=== PATIENT | male | born 1955 | race Caucasian/White ===

== ENCOUNTER 2018-10-23 10:03 | Emergency (ER) | payer BC, SELFPAY ==
[2018-10-23] VITALS (8 sets, daily range): BP systolic 120–171; BP diastolic 77–102; PULSE 59–110; RESP 15–19; TEMP 36.9; O2SAT 94–99
--- NOTE | 2018-10-23 10:14 | DI.RAD.S_ITS ---
PROCEDURE: XR CHEST 1V INDICATIONS: chest pain TECHNIQUE: One view of the chest was acquired. COMPARISON: None. FINDINGS: Surgical changes and devices: None. Lungs and pleura: Low lung volumes with scattered subsegmental atelectasis/scarring. No pleural effusions or pneumothorax. Elevation of the right hemidiaphragm. Mediastinum: Mediastinal contours appear normal. Heart size is normal. Bones and chest wall: No suspicious bony lesions. Overlying soft tissues appear unremarkable. IMPRESSION: No acute disease Dictated by: Garry Li M.D. on 10/23/2018 at 11:05 Approved by: Garry Li M.D. on 10/23/2018 at 11:06
[2018-10-23 10:37] LABS: Add Manual Diff / Slide Review NO; Basophils Absolute Auto 100 /uL (0-100); Basophils Percent Auto 0.9 % (0-2); Eosinophils Absolute Auto 100 /uL (0-450); Eosinophils Percent Auto 0.8 % (2-4); Hematocrit 48.5 % (41-53); Hemoglobin 16.6 g/dL (13.5-17.5); Lymphocytes Absolute Auto 1800 /uL (1100-4500); Lymphocytes Percent Auto 25.4 % (25-40); Mean Corpuscular HGB Conc 34.2 % (30-36); Mean Corpuscular Hemoglobin 30.5 PG (26-34); Mean Corpuscular Volume 89.3 fL (80-100); Monocytes Absolute Auto 600 /uL (0-900); Monocytes Percent Auto 8.6 % (3-14); Neutrophils Absolute Auto 4500 /uL (1500-7000); Neutrophils Percent Auto 64.3 % (50-75); Platelet Count 156 X10^3/uL (150-400); Red Blood Cell Count 5.44 X10^6/uL (4.5-5.9); Red Cell Distribution Width 13.4 % (11.6-14.8)
[2018-10-23 10:45] LABS: PTT Partial Thromboplastin Tim 32 SECONDS (26.4-36.2)
[2018-10-23 10:47] LABS: Alanine Aminotransferase 74 IU/L (21-72); Albumin 4.4 g/dL (3.5-5.0); Albumin Globulin Ratio 1.4 (1.0-2.8); Alkaline Phosphatase 55 U/L (38-126); Aspartate Aminotransferase 39 IU/L (17-59); Bilirubin Total 0.6 mg/dL (0.2-1.3); Blood Urea Nitrogen 18 mg/dL (9-20); Calcium 9.1 mg/dL (8.4-10.2); Carbon Dioxide 30 mmol/L (22-32); Chloride 102 mmol/L (98-107); Creatine Kinase 177 U/L (55-170); Estimated Glomerular Filt Rate > 60.0 mL/min (>60); Globulin 3.1 g/dL (1.7-4.1); Glucose 105 mg/dL (80-110); HEMOLYSIS < 15 (0-50); Lipase 95 U/L (23-300); Magnesium 1.8 mg/dL (1.6-2.3); Potassium 4.1 mmol/L (3.4-5.1); Sodium 139 mmol/L (137-145); Total Protein 7.5 g/dL (6.3-8.2)
[2018-10-23 10:58] LABS: Troponin I < 0.012 ng/mL (0.01-0.034)
[2018-10-23 11:02] LABS: CKMB % Relative Index 2.4 % (1.5-5.0); Creatine Kinase MB 4.25 ng/mL (<2.37)
[2018-10-23 11:12] LABS: B Type Natriuretic Peptide 109 (<100)
--- NOTE | 2018-10-23 12:04 | ED.SOB ---
HPI - SOB/Dyspnea General Chief Complaint: Shortness of Breath/Dyspnea Stated Complaint: atrial fib Time Seen by Provider: 10/23/18 10:28 Source: patient Mode of arrival: ambulatory Limitations: no limitations History of Present Illness Patient comes to the emergency department complaining of his AFib acting up. He states that he has had palpitations on and off over the last 8 days, but no chest pain. He states he occasionally feels as though he needs to ?catch his breath, and states the atrial fibrillation makes him just feel ?weird?. Patient denies any nausea vomiting. No abdominal pain. No fevers or chills. He states he has a history of sleep apnea, but uses CPAP for this, which seems to control the symptoms. Patient states he is seen by Cardiology at the [facility] in [place], and that for now, his business management consultant has just been watching the atrial fib. Patient states he wore a Holter monitor some years ago and confirmed atrial fib. Patient states that normally, he will go anywhere from few weeks to a couple years without episodes, but has had multiple episodes of the atrial fibrillation this week. He states he has not been in AFib for more than 24 hours at a time, but is concerned that he may develop a clot. Currently, patient takes carvedilol and a baby aspirin, among other medications. He is not on any anti dysrhythmic. Related Data Home Medications Medication Instructions Recorded Confirmed aspirin 81 mg tablet,delayed 81 mg PO DAILY 04/21/18 10/23/18 release chlorthalidone 25 mg tablet 12.5 mg PO DAILY tab 04/21/18 10/23/18 doxazosin 8 mg tablet 8 mg PO DAILY 04/21/18 10/23/18 lansoprazole 15 mg capsule,delayed 15 mg PO DAILY 04/21/18 10/23/18 release lisinopril 40 mg tablet 40 mg PO DAILY 04/21/18 10/23/18 melatonin 3 mg tablet 3 mg PO BEDTIME PRN 04/21/18 10/23/18 oxybutynin chloride ER 10 mg 10 mg PO DAILY 04/21/18 10/23/18 tablet,extended release 24 hr testosterone 4 mg/24 hr 1 patch TRANSDERMAL DAILY 04/21/18 10/23/18 transdermal 24 hour patch trazodone 150 mg tablet 150 mg PO BEDTIME 04/21/18 10/23/18 Vitamin B-12 1 tab PO DAILY 10/23/18 10/23/18 alprazolam 1 mg PO DAILY PRN 10/23/18 10/23/18 carvedilol 12.5 mg PO BID 10/23/18 10/23/18 cholecalciferol (vitamin D3) 4,000 unit PO DAILY 10/23/18 10/23/18 [Vitamin D3] sildenafil 1 dose PO PRN PRN 10/23/18 10/23/18 Previous Rx's Medication Instructions Recorded carvedilol 25 mg PO BID #60 tab 10/23/18 Allergies Allergy/AdvReac Type Severity Reaction Status Date / Time hydroxyzine [From Vistaril] AdvReac hyperactivi Verified 04/21/18 15:42 ty Review of Systems Constitutional Denies chills, Denies fever(s), Denies lethargy and Denies weakness Eyes Denies change in vision, Denies eye discharge, Denies irritation and Denies loss of vision ENT Ears, Nose, Mouth, and Throat: Denies change in voice, Denies neck pain and Denies sore throat Cardiovascular Denies chest pain, Denies irregular heart rhythm, Denies lightheadedness, Reports palpitations, Denies dyspnea, Denies dyspnea on exertion and Denies orthopnea Respiratory Denies cough, Denies dyspnea, Denies dyspnea on exertion and Denies wheezing Gastrointestinal Gastrointestinal: Denies abdominal pain, Denies change in bowel habits, Denies diarrhea, Denies nausea and Denies vomiting Genitourinary Denies hematuria, Denies flank pain, Denies urinary incontinence and Denies urinary urgency Musculoskeletal Denies neck pain Integumentary/Breasts Denies pruritus, Denies erythema, Denies rash and Denies wounds Neurologic Denies confusion, Denies loss of vision and Denies weakness Psychiatric Denies anxiety, Denies confusion, Denies depression, Denies homicidal ideation and Denies suicidal ideation Endocrine Reports palpitations Hematologic/Lymphatic Denies easy bruising Allergic/Immunologic Denies wheezing [facility] Medical History HTN (hypertension) (Acute) Atrial fibrillation (Acute) Surgical History No pertinent past surgical history (Acute) Social History Smoking Status: Former smoker Social History Smoking Status: Former smoker Exam Initial Vital Signs Initial Vital Signs: Vital Signs Temperature 98.4 F 10/23/18 10:05 Pulse Rate 66 10/23/18 10:05 Respiratory Rate 18 10/23/18 10:05 Blood Pressure 171/102 H 10/23/18 10:05 Pulse Oximetry 99 10/23/18 10:05 Const General: cooperative and well developed Nutritional Appearance: well nourished Orientation: alert, awake, oriented x3 and not confused [place] Head: normocephalic and atraumatic Ears: external ears normal Nose: external nose normal and No nasal discharge Face and sinus: face symmetric and No dry mucous membranes Mouth: oral mucosae normal and moist mucous membranes Teeth and gingiva: dentition normal Eyes General: appearance normal, both eyes and all related structures Eyelids: eyelids normal Conjunctivae: conjunctivae normal Sclera: sclerae normal Pupils: PERRL EOM: EOM intact bilaterally Neck Neck: normal visual inspection, trachea midline, No lymphadenopathy, No midline deformity and No JVD Lymphatic: No lymphedema Chest Chest: normal inspection of the chest Resp Effort & Inspection: normal respiratory effort, able to speak in complete sentences, no respiratory distress and no use of accessory muscles Auscultation: clear to auscultation bilaterally, no rales, no rhonchi and no wheezes Cardio Rate: regular rate Rhythm: abnormal rhythm irregularly irregular Heart Sounds: no click, no gallops, no murmurs and no rubs Pulses: normal peripheral pulses GI Inspection: non-distended Palpation: soft, no hepatosplenomegaly, No guarding, No pulsatile mass and No tender Auscultation: normal bowel sounds Back/Spine/Pelvis Back: No CVA tenderness Cervical Spine: cervical ROM normal and No pain with cervical ROM Thoracic/Lumbar Spine: thoracic and lumbar spine normal to inspection Skin General: no rashes or lesions noted, No jaundice and No petechiae Neuro General: alert, oriented x3, gait normal and no focal motor deficits Speech: speech normal Extrem General: full ROM, no clubbing, cyanosis or edema, no pedal edema and no calf tenderness Psych Appearance: well kempt Mental Status: mental status grossly normal Attitude: cooperative Thought Content: normal and suicidality Judgment: judgment good Course Course Narrative: Patient was worked up with laboratory studies and EKG. His labs were essentially normal. His EKG did show atrial fibrillation, but with good rate control. Patient remained in AFib but with a normal rate throughout his stay in the emergency department. Patient's case was discussed with Dr. Orellana/cardiology at [facility]. He requested that patient double carvedilol to 25 mg b.i.d. instead of 12.5. They will see pt in 1-2 weeks, and call pt tomorrow with appt. Plan was discussed with the patient who was agreeable. I have given him a new prescription for the increased dose of carvedilol. He is stable at this time. We have discussed the usual indications for return. Orders Ordered: ED Orders 10/23/18 10:05 EKG-12 Lead Stat 10/23/18 10:14 XR chest 1V Stat 10/23/18 10:27 BNP [B Type Natriuretic Peptide] Stat Complete Blood Count AUTO DIFF Stat Comprehensive Metabolic Panel Stat Lipase Stat Magnesium Stat Partial Thromboplastin Time Stat Prothrombin Time INR Stat Troponin & CK Cardiac Panel Stat Vital Signs - 8 hr 10/23/18 10:05 10/23/18 10:37 10/23/18 10:55 Temperature 98.4 F Pulse Rate 66 62 71 Respiratory Rate 18 15 18 Blood Pressure 171/102 H Blood Pressure [Right Arm] 136/82 146/87 H Pulse Oximetry 99 98 98 10/23/18 11:15 10/23/18 12:00 10/23/18 12:01 Temperature Pulse Rate 66 96 H 59 L Respiratory Rate 15 18 16 Blood Pressure Blood Pressure [Right Arm] 120/77 129/79 138/77 Pulse Oximetry 94 95 98 10/23/18 12:30 Temperature Pulse Rate 110 H Respiratory Rate 19 Blood Pressure Blood Pressure [Right Arm] 156/92 H Pulse Oximetry 97 MDM - SOB/Dyspnea Medical Records Attestation: I reviewed the patient's medical records. Lab Data Attestation: I reviewed the patient's lab results. Result diagrams: 10/23/18 10:27 10/23/18 10:27 Lab Results 10/23/18 10/23/18 10/23/18 Range/Units 10:27 10:27 10:27 WBC 7.0 (4.5-11.0) X10^3/uL RBC 5.44 (4.5-5.9) X10^6/uL Hgb 16.6 (13.5-17.5) g/dL Hct 48.5 (41-53) % MCV 89.3 (80-100) fL MCH 30.5 (26-34) PG MCHC 34.2 (30-36) % RDW 13.4 (11.6-14.8) % Plt Count 156 (150-400) X10^3/uL Neut % (Auto) 64.3 (50-75) % Lymph % (Auto) 25.4 (25-40) % [place] % (Auto) 8.6 (3-14) % Eos % (Auto) 0.8 L (2-4) % Baso % (Auto) 0.9 (0-2) % Neut # (Auto) 4500 (7951-3584) /uL Lymph # (Auto) 1800 (6860-3762) /uL [place] # (Auto) 600 (0-900) /uL Eos # (Auto) 100 (0-450) /uL Baso # (Auto) 100 (0-100) /uL PT 12.0 (10.1-12.7) SECONDS INR 1.0 (0.9-1.3) APTT 32 (26.4-36.2) SECONDS Sodium 139 (137-145) mmol/L Potassium 4.1 (3.4-5.1) mmol/L Chloride 102 (98-107) mmol/L Carbon Dioxide 30 (22-32) mmol/L BUN 18 (9-20) mg/dL Creatinine 0.90 (0.66-1.25) mg/dL Estimated GFR > 60.0 (>60) mL/min BUN/Creatinine Ratio 20.0 (6-22) Glucose 105 (80-110) mg/dL Calcium 9.1 (8.4-10.2) mg/dL Magnesium 1.8 (1.6-2.3) mg/dL Total Bilirubin 0.6 (0.2-1.3) mg/dL AST 39 (17-59) IU/L ALT 74 H (21-72) IU/L Alkaline Phosphatase 55 (38-126) U/L Total Creatine Kinase 177 H (55-170) U/L CK-MB (CK-2) 4.25 H (<2.37) ng/mL CK-MB (CK-2) Rel Index 2.4 (1.5-5.0) % Troponin I < 0.012 (0.01-0.034) ng/mL B-Natriuretic Peptide 109 H (<100) Total Protein 7.5 (6.3-8.2) g/dL Albumin 4.4 (3.5-5.0) g/dL Globulin 3.1 (1.7-4.1) g/dL Albumin/Globulin Ratio 1.4 (1.0-2.8) Lipase 95 (23-300) U/L Imaging Data Chest x-ray: Radiologist's impression: [address] [address] XRay Report Signed Patient: Jed Blunt [facility]#: [id number] : 8Acct:[id number] Age/Sex: 63 / MDate of Service: 10/23/18 Loc: ED Accession Number: [id number] Procedure: XR chest 1V Ordering Provider: Dayami Medrano MD PROCEDURE: XR CHEST 1V INDICATIONS: chest pain TECHNIQUE: One view of the chest was acquired. COMPARISON: None. FINDINGS: Surgical changes and devices: None. Lungs and pleura: Low lung volumes with scattered subsegmental atelectasis/scarring. No pleural effusions or pneumothorax. Elevation of the right hemidiaphragm. Mediastinum: Mediastinal contours appear normal. Heart size is normal. Bones and chest wall: No suspicious bony lesions. Overlying soft tissues appear unremarkable. IMPRESSION: No acute disease Dictated by: Garry Li M.D. on 10/23/2018 at 11:05 Appr ECG Data Attestation: I personally reviewed and interpreted this ECG as follows: (See below) Interpretation: Twelve lead EKG performed November 03, 2018 at 10:05 a.m., as follows: Irregular ventricular rhythm with rate of 62 beats per minute. AL interval undetectable QRS duration 99 millisecond QTC interval [address] T wave changes Interpretation: Atrial fibrillation with normal rate; borderline left axis deviation; incomplete right bundle branch block; nonspecific ST T wave abnormality; no signs of acute ischemia; abnormal EKG as interpreted by ED MD. Discharge Plan Departure Patient Disposition: Home Clinical Impression: Atrial fibrillation Qualifiers: Atrial fibrillation type: paroxysmal Qualified Code(s): I48.0 - Paroxysmal atrial fibrillation Discharge Date/Time: 10/23/18 13:40 Interventions: ED Discharge Assessment Last Done: 10/23/18 13:39 Instructions: DI for Atrial Fibrillation Activity Restrictions/Additional Instructions: Your labs look quite good. Your case has been discussed with Dr. Weeks, who has suggested that you double your carvedilol to 25 mg twice a day. He says he would like to see you in the next week or so, and will have his office call you tomorrow to set up an appointment. [facility] [place]. Prescriptions: New carvedilol 25 mg tablet 25 mg PO BID Qty: 60 RF: 0 No Action oxybutynin chloride 10 mg tablet extended release 24hr 10 mg PO DAILY RF: 0 melatonin 3 mg tablet 3 mg PO BEDTIME PRN (Reason: Insomnia) RF: 0 chlorthalidone 25 mg tablet 12.5 mg PO DAILY RF: 0 aspirin 81 mg tablet,delayed release (DR/EC) 81 mg PO DAILY RF: 0 testosterone [Androderm] 4 mg/24 hr patch 24 hour 1 patch Transdermal DAILY RF: 0 doxazosin 8 mg tablet 8 mg PO DAILY RF: 0 trazodone 150 mg tablet 150 mg PO BEDTIME RF: 0 lansoprazole [Prevacid] 15 mg capsule,delayed release(DR/EC) 15 mg PO DAILY RF: 0 lisinopril 40 mg tablet 40 mg PO DAILY RF: 0 carvedilol 12.5 mg tablet 12.5 mg PO BID RF: 0 alprazolam 1 mg tablet 1 mg PO DAILY PRN (Reason: Anxiety) RF: 0 Vitamin D3 4,000 unit Capsule 4,000 unit PO DAILY RF: 0 Vitamin B-12 1 tab PO DAILY RF: 0 sildenafil 1 dose PO PRN PRN (Reason: Erectile Dysfunction) RF: 0 Referrals: Linus Huerta MD [Primary Care Provider] -
== END 2018-10-23 13:40 | disposition home or self-care (01) ==
PROVIDERS: Emergency Provider Emergency Medicine; PCP Internal Medicine
DX: I48.0 Paroxysmal atrial fibrillation (principal); Z79.82 Long term (current) use of aspirin
CPT/HCPCS: 36591; 71045; 80053; 82550; 82553; 83690; 83735; 83880; 84484; 85025; 85610; 85730; 93005; 99283; 99285

== ENCOUNTER → 2020-08-12 11:10 | Outpatient (CLI) | payer BC, SELFPAY ==
--- NOTE | 2020-08-12 | DI.US.S_ITS ---
PROCEDURE: US PERIPH VENOUS LOW EXTREM BI INDICATIONS: EMBOLISM AND THROMBOISIS OF LEFT FEMORAL VEIN TECHNIQUE: Real-time imaging, as well as color and pulse Doppler interrogation, were performed of the deep veins of both legs from the inguinal ligament to the popliteal fossa. COMPARISON: None. FINDINGS: Right: The common femoral, femoral and popliteal veins are normally compressible, and free of intraluminal thrombus. Color and pulse Doppler demonstrate normal phasic intravascular flow. There is normal augmentation response to distal compression maneuver. Left: The common femoral, femoral and popliteal veins are normally compressible, and free of intraluminal thrombus. Color and pulse Doppler demonstrate normal phasic intravascular flow. There is normal augmentation response to distal compression maneuver. IMPRESSION: No DVT found. Dictated by: Tyree Walker M.D. on 08/12/2020 at 12:36 Approved by: Tyree Walker M.D. on 08/12/2020 at 12:36
== END ==
PROVIDERS: PCP Internal Medicine; Referring Provider Internal Medicine Cardiovascular Disease; Visit Provider Internal Medicine Cardiovascular Disease
DX: I82.512 Chronic embolism and thrombosis of left femoral vein (principal)
CPT/HCPCS: 93970

== ENCOUNTER → 2022-11-11 09:31 | Outpatient (CLI) | payer MEDICARE, BC, SELFPAY ==
--- NOTE | 2022-11-11 09:34 | DI.RAD.S_ITS ---
PROCEDURE: XR HUMERUS RT 2V INDICATIONS: eval Right upper arm and shoulder pain TECHNIQUE: 2 views of the humerus were acquired. COMPARISON: [facility], CR, XR SHOULDER RT MIN 2V, 11/11/2022, 9:36. FINDINGS: Bones: No fractures or dislocations. No suspicious bony lesions. Soft tissues: Suspect rotator cuff calcific tendinitis. IMPRESSION: 1. No acute osseous abnormality. 2. Suspect rotator cuff calcific tendinitis. Dictated by: Mat Gaines M.D. on 11/11/2022 at 15:05 Approved by: Mat Gaines M.D. on 11/11/2022 at 15:05
--- NOTE | 2022-11-11 09:34 | DI.RAD.S_ITS ---
PROCEDURE: XR SHOULDER RT MIN 2V INDICATIONS: eval Right upper arm and shoulder pain TECHNIQUE: 3 views of the shoulder were acquired. COMPARISON: None. FINDINGS: Bones: No fractures or dislocations. No suspicious bony lesions. Moderate acromioclavicular and mild glenohumeral joint degeneration. Visualized ribs appear intact. Soft tissues: Calcific densities over the humeral head suggesting rotator cuff calcific tendinitis. IMPRESSION: 1. Moderate osteoarthritic changes. 2. Suspect rotator cuff calcific tendinitis. Dictated by: Mat Gaines M.D. on 11/11/2022 at 15:03 Approved by: Mat Gaines M.D. on 11/11/2022 at 15:04
[2022-11-11 11:34] LABS: Alanine Aminotransferase 40 IU/L (<50); Albumin 4.2 g/dL (3.5-5.0); Albumin Globulin Ratio 1.6 (1.0-2.8); Alkaline Phosphatase 55 U/L (38-126); Aspartate Aminotransferase 29 IU/L (17-59); BUN Creatinine Ratio 14.3 (6-22); Bilirubin Total 0.7 mg/dL (0.2-1.3); Blood Urea Nitrogen 12 mg/dL (9-20); Carbon Dioxide 33 mmol/L (22-32); Chloride 99 mmol/L (98-107); Cholesterol 138 mg/dL (140-199); Estimated Glomerular Filt Rate > 60 mL/min (>60); Globulin 2.6 g/dL (1.7-4.1); Glucose 101 mg/dL (80-110); HDL Cholesterol 30 mg/dL (40-60); HEMOLYSIS < 15 (0-50); LDL Cholesterol Calculated 88 mg/dL (<100); Potassium 4.7 mmol/L (3.4-5.1); Sodium 138 mmol/L (137-145); Total Protein 6.8 g/dL (6.3-8.2); Triglycerides 102 mg/dL (35-150)
[2022-11-11 11:38] LABS: Add Manual Diff / Slide Review NO; Basophils Absolute Auto 100 /uL (0-100); Basophils Percent Auto 0.9 % (0-2); Eosinophils Absolute Auto 200 /uL (0-450); Eosinophils Percent Auto 2.6 % (2-4); Hematocrit 45.7 % (41-53); Hemoglobin 16.2 g/dL (13.5-17.5); Lymphocytes Absolute Auto 1400 /uL (1100-4500); Mean Corpuscular HGB Conc 35.3 % (30-36); Mean Corpuscular Hemoglobin 31.3 PG (26-34); Mean Corpuscular Volume 88.6 fL (80-100); Monocytes Absolute Auto 500 /uL (0-900); Neutrophils Absolute Auto 3800 /uL (1500-7000); Neutrophils Percent Auto 63.5 % (50-75); Platelet Count 169 X10^3/uL (150-400); Red Blood Cell Count 5.16 X10^6/uL (4.5-5.9); Red Cell Distribution Width 13.3 % (11.6-14.8); White Blood Cell Count 5.9 X10^3/uL (4.5-11.0)
[2022-11-11 11:55] LABS: Prostate Specific Antigen 0.449 ng/mL (0.10-4.00); TSH w/ Reflex to FT4 1.42 uIU/mL (0.47-4.68)
[2022-11-12 09:17] LABS: x Labcorp Estim. Avg Glu (eAG) 103 mg/dL (.); x Labcorp Hemoglobin A1c 5.2 % (4.8-5.6)
[2022-11-17 08:43] LABS: Percent Free Testosterone 2.91 % (1.50-4.20); Testosterone Free 11.62 ng/dL (5.00-21.00); Testosterone Total 399.3 ng/dL (264.0-916.0)
== END ==
PROVIDERS: PCP Registered Nurse Diabetes Educator; Referring Provider Registered Nurse Diabetes Educator; Visit Provider Registered Nurse Diabetes Educator
DX: M25.511 Pain in right shoulder (principal); M79.601 Pain in right arm; I10 Essential (primary) hypertension; R39.9 Unspecified symptoms and signs involving the genitourinary system; R79.89 Other specified abnormal findings of blood chemistry; R73.01 Impaired fasting glucose
CPT/HCPCS: 73030; 73060; 80053; 80061; 83036; 84153; 84402; 84403; 84443; 85025

== ENCOUNTER → 2022-11-17 15:01 | Outpatient (CLI) | payer MEDICARE, BC, SELFPAY | PROVIDERS: PCP Registered Nurse Diabetes Educator; Referring Provider Urology; Visit Provider Urology | DX: R97.20 Elevated prostate specific antigen [PSA] (principal) | CPT/HCPCS: 36415; 84153; 84154 ==

== ENCOUNTER → 2022-12-31 10:30 | Outpatient (CLI) | payer MEDICARE, BC, SELFPAY ==
[2022-12-31 14:15] LABS: Urine N gonorrhoeae NOT DETECTED
[2022-12-31 14:18] LABS: Urine Chlamydia NOT DETECTED
[2023-01-01 15:14] LABS: HSV1IGG < 0.91 index (0.00-0.90)
[2023-01-02 04:39] LABS: RPR Screen Non Reactive (Non Reactive)
[2023-01-03 16:25] LABS: Hepatitis B Surface Antigen NEGATIVE s/c (NEGATIVE)
[2023-01-03 17:23] LABS: HIV 1 & 2 Ab/Ag 4th Gen Combo NEGATIVE (NEGATIVE); Hep C Virus Ab w/Reflex Quant NEGATIVE s/c (NEGATIVE)
== END ==
LOC: RAD 10:31 → LAB 01-04 11:12
PROVIDERS: PCP Registered Nurse Diabetes Educator; Referring Provider Registered Nurse Diabetes Educator; Visit Provider Registered Nurse Diabetes Educator
DX: Z72.51 High risk heterosexual behavior (principal)
CPT/HCPCS: 36415; 86592; 86695; 86696; 86803; 87340; 87389; 87491; 87591

== ENCOUNTER → 2023-01-03 12:51 | Outpatient (CLI) | payer MEDICARE, BC, SELFPAY | PROVIDERS: PCP Registered Nurse Diabetes Educator; Visit Provider Registered Nurse Diabetes Educator | DX: L73.9 Follicular disorder, unspecified (principal) | CPT/HCPCS: 87070; 87075; 87205 ==

== ENCOUNTER → 2023-02-11 11:09 | Outpatient (CLI) | payer MEDICARE, BC, SELFPAY ==
--- NOTE | 2023-02-11 11:10 | DI.RAD.S_ITS ---
PROCEDURE: XR LUMBAR SPINE 2-3V INDICATIONS: eval chronic LBP TECHNIQUE: 3 views of the lumbar spine were acquired. COMPARISON: None. FINDINGS: Bones: 5 [id number] vertebrae are present. There is normal bony alignment. No acute vertebral body compression fractures. No suspicious bony lesions. Moderate multilevel lumbar spondylosis with degenerative endplate changes, disc space loss, and endplate osteophyte formation. Soft tissues: Overlying bowel gas pattern is normal. No suspicious soft tissue calcifications. IMPRESSION: Lumbar spine without acute fracture. Moderate multilevel lumbar spondylosis. Findings are most severe at L4-5 and L5-S1. Dictated by: Cristóbal Harding M.D. on 02/11/2023 at 12:28 Approved by: Cristóbal Harding M.D. on 02/11/2023 at 12:29
== END ==
PROVIDERS: PCP Registered Nurse Diabetes Educator; Referring Provider Registered Nurse Diabetes Educator; Visit Provider Registered Nurse Diabetes Educator
DX: M54.59 Other low back pain (principal); M47.816 Spondylosis without myelopathy or radiculopathy, lumbar region; M47.817 Spondylosis without myelopathy or radiculopathy, lumbosacral region
CPT/HCPCS: 72100

== ENCOUNTER → 2023-03-24 14:24 | Outpatient (CLI) | payer MEDICARE, BC, SELFPAY ==
--- NOTE | 2023-03-24 14:26 | DI.RAD.S_ITS ---
PROCEDURE: XR CERVICAL SPINE 2V OR 3V INDICATIONS: Right shoulder pain/numbness - neck pain TECHNIQUE: 3 view(s) of the cervical spine were acquired. COMPARISON: None. FINDINGS: Bones: No fractures or dislocations to the T1 level. The lateral masses of C1 appear intact on the odontoid view. No suspicious bony lesions. Mild disc height loss at C3-4. Mild facet arthrosis, most prominent at the left side of C5-6. Soft tissues: No prevertebral soft tissue swelling. IMPRESSION: Minimal degenerative disc disease and facet arthrosis. Dictated by: Mark Burch M.D. on 03/24/2023 at 17:09 Approved by: Mark Burch M.D. on 03/24/2023 at 17:09
== END ==
PROVIDERS: PCP Registered Nurse Diabetes Educator; Referring Provider Physician Assistant; Visit Provider Physician Assistant
DX: M25.511 Pain in right shoulder (principal); R20.0 Anesthesia of skin; R20.2 Paresthesia of skin; M50.30 Other cervical disc degeneration, unspecified cervical region; M47.812 Spondylosis without myelopathy or radiculopathy, cervical region; M25.50 Pain in unspecified joint
CPT/HCPCS: 72040; 85651; 86140

== ENCOUNTER → 2023-03-24 14:38 | Outpatient (CLI) | payer MEDICARE, BC, SELFPAY ==
[2023-03-24 15:58] LABS: C-Reactive Protein Quant < 0.5 mg/dL (<1.0)
[2023-03-24 17:45] LABS: Erythrocyte Sedimentation Rate 3 MM/HR (0-15)
== END ==
PROVIDERS: PCP Registered Nurse Diabetes Educator; Referring Provider Physician Assistant; Visit Provider Physician Assistant
DX: M25.50 Pain in unspecified joint (principal)
CPT/HCPCS: 85651; 86140

== ENCOUNTER 2023-05-23 14:30 | Outpatient (RCR) | payer MEDICARE, BC, SELFPAY ==
--- NOTE | 2023-03-21 16:37 | PT.OIE ---
Current Diagnoses Stiffness of other specified joint, not elsewhere classified (03/21/23) Other low back pain (03/21/23) Past Medical History (Last Updated 02/14/23 @ 19:11 by SHELLY Colindres) Atrial fibrillation Dyslipidemia HSV-2 (herpes simplex virus 2) infection HTN (hypertension) Impaired fasting blood sugar Low testosterone Lumbar spondylosis Other low back pain Past Surgical History (Last Reviewed 02/14/23 @ 19:06 by SHELLY Colindres) No pertinent past surgical history Visit Care Team Role Provider Type Other Providers Specialty: Address: Phone: Fax: Email: Doctor Ziyad MD Family Provider Non-Staff Specialty: Medical Address: Phone: Fax: Email: SHELLY Colindres Attending Provider [employer] Primary Care Provider Referring Provider Specialty: Medical Address: [address] [place] [address], [facility] Email: [email or web address] Physical Therapy Initial Evaluation PT-OP-A Visit Information Start: 03/21/23 14:21 Freq: Status: Active Protocol: Document 03/21/23 12:00 DCW (Rec: 03/21/23 14:25 [facility] [id number]) Out-Patient Physical Therapy Visit Information Visit Information Visit Type Initial Evaluation Visit Start Time 12:00 Visit Stop Time 12:45 Total Visit Minutes 45 Visit Number 1 Number of COORDINATOR OF GENETIC SERVICES Visits 0 Evaluation Information Evaluation Date 03/21/23 PT-OP-B Current Condition Start: 03/21/23 14:21 Freq: Status: Active Protocol: Document 03/21/23 12:00 DCW (Rec: 03/21/23 16:21 DC [id number]) Current Condition History of Current Condition Onset Date Multi-month history Current Complaints Worsening low back pain and stiffness History of Current Condition Pt is a 67 year old male presenting with a multi-month history of low back pain. Reports it has been worsening, but there was no initial injury. Worse in the morning and loosens up as the day progresses. Pain wakes him up every night. Pt reports pain varies in intensity and location. Reports sometimes it is arthritic pain right in my spine, and sometimes it feels more like the muscles across my entire low back. Pain in the muscles can be on the left or the right, but is typically only on one side at a time. goes for daily walks, typically has to stop after ~ 45 minutes due to back pain. Notes no radicular pain into his legs. PT-OP-C Subjective Start: 03/21/23 14:21 Freq: Status: Active Protocol: Document 03/21/23 12:00 DCW (Rec: 03/21/23 14:25 DCW [id number]) OP-PT Subjective Patient Comments Patient Comments It just keeps getting worse. Patient Reported Progress Improving Patient Questionnaires Oswestry Low Back Index Oswestry Score 50 = 18% PT-OP-F Manual Assessment Start: 03/21/23 14:21 Freq: Status: Active Protocol: Document 03/21/23 12:00 DCW (Rec: 03/21/23 16:21 DCW [id number]) Manual Assessments Joint Mobility Assessment Joint Mobility Assessment Severe hypomobility in spine with attempted vertebral mobilization, almost no P->A movement in thoracic and lumbar spine. PT-OP-J Posture/Palpation/Skin Start: 03/21/23 14:21 Freq: Status: Active Protocol: Document 03/21/23 12:00 DCW (Rec: 03/21/23 16:21 DCW [id number]) Posture Evaluation Position Standing Evaluation View Lateral T-Spine Posture Increased Kyphosis L-Spine Posture Flattened PT-OP-K Range of Motion Start: 03/21/23 14:21 Freq: Status: Active Protocol: Document 03/21/23 12:00 DCW (Rec: 03/21/23 16:21 DCW [id number]) Lumbar Spine Range of Motion Lumbar Spine Active Degrees Testing Position Standing Flexion 20 Extension 20 Lateral Flexion Left 61 Lateral Flexion Right 59 ROM Limitations Bony Restriction Comments Lateral flexion measured in cm from fingertips to floor PT-OP-L Special Tests Start: 03/21/23 14:21 Freq: Status: Active Protocol: Document 03/21/23 12:00 DCW (Rec: 03/21/23 16:21 DCW [id number]) Special Tests Lumbar Spine Special Tests Vertical Spine Loading Test Results Negative Straight Leg Raise Test Results Bilateral Hamstring tightness 50? Slump Test Results Negative Compression Test Results Positive - increased c/o pain A-P Shearing Test Results Negative Hip Special Tests LAURITA Test Results Negative Piriformis Test Results Negative PT-OP-M Strength Start: 03/21/23 14:21 Freq: Status: Active Protocol: Document 03/21/23 12:00 DCW (Rec: 03/21/23 16:21 DCW [id number]) Trunk Strength Trunk Manual Muscle Testing Core Stabilization Good contraction with verbal cues, difficulty with contraction during active mobility: 4/5 PT-OP-Q Treatments Start: 03/21/23 14:21 Freq: Status: Active Protocol: Document 03/21/23 12:00 DCW (Rec: 03/21/23 14:25 DCW [id number]) Therapeutic Exercises Supine Exercises LTR Supine Exercise Name LTR Sidelying Exercises Open Book Sidelying Exercise Name Open Book Standing Exercises Pallof Press Standing Exercise Name Pallof Press Resistance Lv 3 Equipment Used T-band PT-OP-T Assessment and Plan Start: 03/21/23 14:21 Freq: Status: Active Protocol: Document 03/21/23 12:00 DCW (Rec: 03/21/23 16:37 DCW [id number]) Physical Therapy Assessment Rehab Potential Rehabilitation Potential Fair Evaluation Complexity Number of Personal Factors/Comorbidities 1-2 Number of Body Systems Impaired 3 Clinical Presentation at Evaluation Evolving Impairments Impairments Activity Tolerance,Functional Activities,Functional Mobility ,Gait,Pain,Posture,ROM, Strength,Tone Goals Three Impairment Pt lumbar flexion limited to 20? Retort Setter Goal (LTG) Pt to demonstrate improved lumbar flexion in standing by at least 20? to a total of 40? or more to improve ability to reach down to pick objects off the floor without increasing back pain. LTG Duration 05/21/23 Two Impairment Back pain wakes pt up every night Retort Setter Goal (LTG) Pt to report sleeping through the night without waking up due to back pain for at least 4 nights a week. LTG Duration 05/21/23 One Impairment Pt does not have an appropriate home exercise program Short Term Goal (STG) Pt to be independent and compliant with an appropriate HEP STG Duration 04/20/23 Assessment Summary Assessment Pt presents with signs and symptoms consistent with referring diagnosis of lumbar DJD/DDD, resulting in low back pain and severely restricted lumbar mobility. Pt demonstrates poor lumbar and thoracic mobility/ROM, as well as mild core weakness and difficulty maintaining abdominal bracing with activity. Pt should benefit from skilled therapy focusing on STM and joint mobilizations to improve lumbar mobility, core strengthening, hamstring flexibility, and body mechanics. Due to severe nature of hypomobility of lumbar spine, pt may benefit from follow-up testing to rule in/rule out potential causes of inflammatory process throughout spine Physical Therapy Plan Frequency and Duration Frequency of Treatment 2x/Week Plan of Care Start Date 03/21/23 Plan of Care End Date 05/21/23 Therapeutic Interventions Therapeutic Interventions Home Exercise Program,Joint Mobilizations,Manual Therapy, Neuromuscular Re-education, Patient/Caregiver Education, Self-Care/Home Management,Soft Tissue Mobilization, Therapeutic Activities, Therapeutic Exercises Next Visit Focus/Plan Next Note Type Treatment Note Next Visit Plan Core strengthening, joint mobilizations, STM, ROM/ flexibility
--- NOTE | 2023-03-21 16:37 | PT.OPPOC ---
Physical, Occupational & Speech Therapy At [facility] Current Diagnoses Stiffness of other specified joint, not elsewhere classified (03/21/23) Other low back pain (03/21/23) Visit Care Team Role Provider Type Other Providers Specialty: Address: Phone: Fax: Email: Doctor Ziyad MD Family Provider Non-Staff Specialty: Medical Address: Phone: Fax: Email: SHELLY Colindres Attending Provider Advanced Program Project Analyst Primary Care Provider Referring Provider Specialty: Medical Address: [address] [place] [address] Email: [email or web address] Plan Of Care PT-OP-T Assessment and Plan Start: 03/21/23 14:21 Freq: Status: Active Protocol: Document 03/21/23 12:00 DCW (Rec: 03/21/23 16:37 DCW [id number]) Physical Therapy Assessment Rehab Potential Rehabilitation Potential Fair Evaluation Complexity Number of Personal Factors/Comorbidities 1-2 Number of Body Systems Impaired 3 Clinical Presentation at Evaluation Evolving Impairments Impairments Activity Tolerance,Functional Activities,Functional Mobility ,Gait,Pain,Posture,ROM, Strength,Tone Goals Three Impairment Pt lumbar flexion limited to 20? Long-Term Goal (LTG) Pt to demonstrate improved lumbar flexion in standing by at least 20? to a total of 40? or more to improve ability to reach down to pick objects off the floor without increasing back pain. LTG Duration 05/21/23 Two Impairment Back pain wakes pt up every night Long-Term Goal (LTG) Pt to report sleeping through the night without waking up due to back pain for at least 4 nights a week. LTG Duration 05/21/23 One Impairment Pt does not have an appropriate home exercise program Short Term Goal (STG) Pt to be independent and compliant with an appropriate HEP STG Duration 04/20/23 Assessment Summary Assessment Pt presents with signs and symptoms consistent with referring diagnosis of lumbar DJD/DDD, resulting in low back pain and severely restricted lumbar mobility. Pt demonstrates poor lumbar and thoracic mobility/ROM, as well as mild core weakness and difficulty maintaining abdominal bracing with activity. Pt should benefit from skilled therapy focusing on STM and joint mobilizations to improve lumbar mobility, core strengthening, hamstring flexibility, and body mechanics. Due to severe nature of hypomobility of lumbar spine, pt may benefit from follow-up testing to rule in/rule out potential causes of inflammatory process throughout spine Physical Therapy Plan Frequency and Duration Frequency of Treatment 2x/Week Plan of Care Start Date 03/21/23 Plan of Care End Date 05/21/23 Therapeutic Interventions Therapeutic Interventions Home Exercise Program,Joint Mobilizations,Manual Therapy, Neuromuscular Re-education, Patient/Caregiver Education, Self-Care/Home Management,Soft Tissue Mobilization, Therapeutic Activities, Therapeutic Exercises Next Visit Focus/Plan Next Note Type Treatment Note Next Visit Plan Core strengthening, joint mobilizations, STM, ROM/ flexibility Plan of Care Dates Plan of Care Start Date 03/21/23 Plan of Care End Date 05/21/23 Electronically Signed by: Maxx Aldana, PT 03/21/23 5140 If you are in agreement with this Plan of Care, please return a signed and dated copy. I have reviewed this Plan of Care and certify that the skilled therapy services above are required to meet the patient?s needs. Physician Signature Date Printed Name and Credentials Clinical Instructor Signature Printed Name and Credentials
--- NOTE | 2023-03-23 12:45 | PT.OTN ---
Current Diagnoses Stiffness of other specified joint, not elsewhere classified (03/23/23) Other low back pain (03/23/23) Physical Therapy Treatment Note PT-OP-A Visit Information Start: 03/21/23 14:21 Freq: Status: Active Protocol: Document 03/23/23 12:00 DCW (Rec: 03/23/23 12:45 DCW [id number]) Out-Patient Physical Therapy Visit Information Visit Information Visit Type Treatment Note Visit Start Time 12:00 Visit Stop Time 12:45 Total Visit Minutes 45 Visit Number 2 Number of CROOK OPERATOR Visits 0 Evaluation Information Evaluation Date 03/21/23 PT-OP-B Current Condition Start: 03/21/23 14:21 Freq: Status: Active Protocol: Document 03/21/23 12:00 DCW (Rec: 03/21/23 16:21 DCW [id number]) Current Condition History of Current Condition Onset Date Multi-month history Current Complaints Worsening low back pain and stiffness History of Current Condition Pt is a 67 year old male presenting with a multi-month history of low back pain. Reports it has been worsening, but there was no initial injury. Worse in the morning and loosens up as the day progresses. Pain wakes him up every night. Pt reports pain varies in intensity and location. Reports sometimes it is arthritic pain right in my spine, and sometimes it feels more like the muscles across my entire low back. Pain in the muscles can be on the left or the right, but is typically only on one side at a time. goes for daily walks, typically has to stop after ~ 45 minutes due to back pain. Notes no radicular pain into his legs. PT-OP-C Subjective Start: 03/21/23 14:21 Freq: Status: Active Protocol: Document 03/23/23 12:00 DCW (Rec: 03/23/23 12:45 DCW [id number]) OP-PT Subjective Patient Comments Patient Comments I slept really good, so it's feeling pretty good today. PT-OP-F Manual Assessment Start: 03/21/23 14:21 Freq: Status: Active Protocol: Document 03/21/23 12:00 DCW (Rec: 03/21/23 16:21 DCW [id number]) Manual Assessments Joint Mobility Assessment Joint Mobility Assessment Severe hypomobility in spine with attempted vertebral mobilization, almost no P->A movement in thoracic and lumbar spine. PT-OP-J Posture/Palpation/Skin Start: 03/21/23 14:21 Freq: Status: Active Protocol: Document 03/21/23 12:00 DCW (Rec: 03/21/23 16:21 DCW [id number]) Posture Evaluation Position Standing Evaluation View Lateral T-Spine Posture Increased Kyphosis L-Spine Posture Flattened PT-OP-K Range of Motion Start: 03/21/23 14:21 Freq: Status: Active Protocol: Document 03/21/23 12:00 DCW (Rec: 03/21/23 16:21 DCW [id number]) Lumbar Spine Range of Motion Lumbar Spine Active Degrees Testing Position Standing Flexion 20 Extension 20 Lateral Flexion Left 61 Lateral Flexion Right 59 ROM Limitations Bony Restriction Comments Lateral flexion measured in cm from fingertips to floor PT-OP-L Special Tests Start: 03/21/23 14:21 Freq: Status: Active Protocol: Document 03/21/23 12:00 DCW (Rec: 03/21/23 16:21 DCW [id number]) Special Tests Lumbar Spine Special Tests Vertical Spine Loading Test Results Negative Straight Leg Raise Test Results Bilateral Hamstring tightness 50? Slump Test Results Negative Compression Test Results Positive - increased c/o pain A-P Shearing Test Results Negative Hip Special Tests LAURITA Test Results Negative Piriformis Test Results Negative PT-OP-M Strength Start: 03/21/23 14:21 Freq: Status: Active Protocol: Document 03/21/23 12:00 DCW (Rec: 03/21/23 16:21 DCW [id number]) Trunk Strength Trunk Manual Muscle Testing Core Stabilization Good contraction with verbal cues, difficulty with contraction during active mobility: 4/5 PT-OP-Q Treatments Start: 03/21/23 14:21 Freq: Status: Active Protocol: Document 03/23/23 12:00 DCW (Rec: 03/23/23 12:45 DCW [id number]) Gym Equipment Therapeutic Ball Trunk Rotation Exercise Details Resisted Trunk Rotation Ball Size/Color Green - 65 cm Double Mccreary T-band Body Position Sitting Pelvic Tilts Exercise Details Pelvic tilts/circles Ball Size/Color Green - 65 cm Body Position Sitting Comments Mirror to limit upper body movement Bridging Exercise Details Bridging /c feet on ball Ball Size/Color Red - 55 cm Body Position Supine LTR Exercise Details LTR Ball Size/Color Red - 55 cm Body Position Supine Therapeutic Exercises Standing Exercises Pec Stretch Standing Exercise Name Corner Pec Stretch Side bilateral Manual Therapy Treatment Soft Tissue Mobilization Lumbar Body Location Lumbar paraspinals Mobilization Type Strumming,Sustained Pressure Intensity/Depth Moderate Body Position Sidelying PT-OP-T Assessment and Plan Start: 03/21/23 14:21 Freq: Status: Active Protocol: Document 03/23/23 12:00 DCW (Rec: 03/23/23 12:45 DCW [id number]) Physical Therapy Assessment Impairments Impairments Activity Tolerance,Functional Activities,Functional Mobility ,Gait,Pain,Posture,ROM, Strength,Tone Goals Three Impairment Pt lumbar flexion limited to 20? Custodial Goal (LTG) Pt to demonstrate improved lumbar flexion in standing by at least 20? to a total of 40? or more to improve ability to reach down to pick objects off the floor without increasing back pain. LTG Duration 05/21/23 Two Impairment Back pain wakes pt up every night Custodial Goal (LTG) Pt to report sleeping through the night without waking up due to back pain for at least 4 nights a week. LTG Duration 05/21/23 One Impairment Pt does not have an appropriate home exercise program Short Term Goal (STG) Pt to be independent and compliant with an appropriate HEP STG Duration 04/20/23 Assessment Summary Assessment Good response to treatment today, pt mentioned interest in purchasing T-ball for HEP. Has follow-up with PCP next week to discuss hypomobility in spine. Physical Therapy Plan Frequency and Duration Frequency of Treatment 2x/Week Plan of Care Start Date 03/21/23 Plan of Care End Date 05/21/23 Therapeutic Interventions Therapeutic Interventions Home Exercise Program,Joint Mobilizations,Manual Therapy, Neuromuscular Re-education, Patient/Caregiver Education, Self-Care/Home Management,Soft Tissue Mobilization, Therapeutic Activities, Therapeutic Exercises Next Visit Focus/Plan Next Note Type Treatment Note Next Visit Plan Core strengthening, joint mobilizations, STM, ROM/ flexibility
--- NOTE | 2023-03-28 13:08 | PT.OTN ---
Current Diagnoses Stiffness of other specified joint, not elsewhere classified (03/28/23) Other low back pain (03/28/23) Physical Therapy Treatment Note PT-OP-A Visit Information Start: 03/21/23 14:21 Freq: Status: Active Protocol: Document 03/28/23 12:18 SP (Rec: 03/28/23 13:30 SP [id number]) Out-Patient Physical Therapy Visit Information Visit Information Visit Type Treatment Note Visit Start Time 12:18 Visit Stop Time 13:08 Total Visit Minutes 50 Visit Number 3 Number of CHIMNEY BUILDER Visits 1 Evaluation Information Evaluation Date 03/21/23 Precautions Precautions 03/28/23: pt reports [place], has hearing aids. PT-OP-B Current Condition Start: 03/21/23 14:21 Freq: Status: Active Protocol: Document 03/21/23 12:00 DCW (Rec: 03/21/23 16:21 DCW [id number]) Current Condition History of Current Condition Onset Date Multi-month history Current Complaints Worsening low back pain and stiffness History of Current Condition Pt is a 67 year old male presenting with a multi-month history of low back pain. Reports it has been worsening, but there was no initial injury. Worse in the morning and loosens up as the day progresses. Pain wakes him up every night. Pt reports pain varies in intensity and location. Reports sometimes it is arthritic pain right in my spine, and sometimes it feels more like the muscles across my entire low back. Pain in the muscles can be on the left or the right, but is typically only on one side at a time. goes for daily walks, typically has to stop after ~ 45 minutes due to back pain. Notes no radicular pain into his legs. PT-OP-C Subjective Start: 03/21/23 14:21 Freq: Status: Active Protocol: Document 03/28/23 12:18 SP (Rec: 03/28/23 13:30 SP [id number]) OP-PT Subjective Patient Comments Patient Comments Pt reports wants review HEP doing correctly. PT-OP-F Manual Assessment Start: 03/21/23 14:21 Freq: Status: Active Protocol: Document 03/21/23 12:00 DCW (Rec: 03/21/23 16:21 DCW [id number]) Manual Assessments Joint Mobility Assessment Joint Mobility Assessment Severe hypomobility in spine with attempted vertebral mobilization, almost no P->A movement in thoracic and lumbar spine. PT-OP-J Posture/Palpation/Skin Start: 03/21/23 14:21 Freq: Status: Active Protocol: Document 03/21/23 12:00 DCW (Rec: 03/21/23 16:21 DCW [id number]) Posture Evaluation Position Standing Evaluation View Lateral T-Spine Posture Increased Kyphosis L-Spine Posture Flattened PT-OP-K Range of Motion Start: 03/21/23 14:21 Freq: Status: Active Protocol: Document 03/21/23 12:00 DCW (Rec: 03/21/23 16:21 DCW [id number]) Lumbar Spine Range of Motion Lumbar Spine Active Degrees Testing Position Standing Flexion 20 Extension 20 Lateral Flexion Left 61 Lateral Flexion Right 59 ROM Limitations Bony Restriction Comments Lateral flexion measured in cm from fingertips to floor PT-OP-L Special Tests Start: 03/21/23 14:21 Freq: Status: Active Protocol: Document 03/21/23 12:00 DCW (Rec: 03/21/23 16:21 DCW [id number]) Special Tests Lumbar Spine Special Tests Vertical Spine Loading Test Results Negative Straight Leg Raise Test Results Bilateral Hamstring tightness 50? Slump Test Results Negative Compression Test Results Positive - increased c/o pain A-P Shearing Test Results Negative Hip Special Tests LAURITA Test Results Negative Piriformis Test Results Negative PT-OP-M Strength Start: 03/21/23 14:21 Freq: Status: Active Protocol: Document 03/21/23 12:00 DCW (Rec: 03/21/23 16:21 DCW [id number]) Trunk Strength Trunk Manual Muscle Testing Core Stabilization Good contraction with verbal cues, difficulty with contraction during active mobility: 4/5 PT-OP-Q Treatments Start: 03/21/23 14:21 Freq: Status: Active Protocol: Document 03/28/23 12:18 SP (Rec: 03/28/23 13:30 SP [id number]) Gym Equipment Therapeutic Ball Trunk Rotation Exercise Details Resisted Trunk Rotation Ball Size/Color Green - 65 cm green T-band Body Position Sitting Reps/Duration 2x15 Comments held front, cues trunk rotation /c elongated posture and follow upperbody with arms Pelvic Tilts Exercise Details Pelvic tilts/circles: fwd/bwd/ lateral Ball Size/Color Green - 65 cm Body Position Sitting Reps/Duration x15 Comments Mirror to limit upper body movement, rock oversit bones Bridging Exercise Details Bridging /c feet on ball Ball Size/Color Red - 55 cm felt better than 65cm on LS Body Position Supine Reps/Duration 5 reps each side Comments discomfort over LS larg Tball LTR Exercise Details LTR Ball Size/Color Red - 55 cm, felt better than 65cm on LS Body Position Supine Reps/Duration x10 Comments discomfort over LS larg Tball Therapeutic Exercises Supine Exercises stretching Supine Exercise Name 1. SKTC 2. piriformis 3. FIg 4 Side bilateral Reps/Minutes 30 x2 each Comments cued breath allow lengthening in LB, LTR Supine Exercise Name LTR Reps/Minutes 2x10 Sidelying Exercises Open Book Sidelying Exercise Name Open Book Reps/Minutes discussed but not performed, feels good Sitting Exercises sit stands Sitting Exercise Name discussed lumbar flexion sit/ stand hover chair to sit Comments not performed, good understanding lumbar ROM lumbar flexion Sitting Exercise Name LS ROM forward Resistance 65cm tball Equipment Used sit on mesh chair Reps/Minutes x10 Comments good feedback LS musculature stretching Standing Exercises wall posture Standing Exercise Name initiated in PT- arms at side anatomical position Equipment Used back to wall (towel behind head next tx) Reps/Minutes 5 SH x2 Comments cued pelvis/TS, CS neutral/nod position Pec Stretch Standing Exercise Name Corner/Doorway Pec Stretch Side bilateral Reps/Minutes 30 x2 Comments cued split stance, elongated posture, CS chin nod/tuck, range painfree pec Pallof Press Standing Exercise Name Pallof Press Side bilateral Resistance Lv 3>4 Equipment Used T-band Reps/Minutes 2x15 rep Comments cued soft knee, neutral pelvis , pressout lower sternum Other Exercises self STMs Other Exercise Name tennis ball: glut, ES- PRN home Side bilateral Reps/Minutes 30 sec Comments good feedback massage Self-Care/Home Management Treatment Education Patient Education Body Mechanics,Home Exercise Program,Posture Other Education Ed on anatomy and proper posture for carryover decrease posterior chain discomfort, balance front/back side for less gravity pressure on spine . PT-OP-T Assessment and Plan Start: 03/21/23 14:21 Freq: Status: Active Protocol: Document 03/28/23 12:18 SP (Rec: 03/28/23 13:30 SP [id number]) Physical Therapy Assessment Goals Three Impairment Pt lumbar flexion limited to 20? Intermediate Goal (LTG) Pt to demonstrate improved lumbar flexion in standing by at least 20? to a total of 40? or more to improve ability to reach down to pick objects off the floor without increasing back pain. LTG Duration 05/21/23 Two Impairment Back pain wakes pt up every night Intermediate Goal (LTG) Pt to report sleeping through the night without waking up due to back pain for at least 4 nights a week. LTG Duration 05/21/23 One Impairment Pt does not have an appropriate home exercise program Short Term Goal (STG) Pt to be independent and compliant with an appropriate HEP STG Duration 04/20/23 Assessment Summary Assessment Pt good feedback flexibility stretching this tx over posterior chain with initiated flexibility HEP today, provided HOs. Cues for set up ther ex and postural corrections LS, stance, CS retraction/nod neutral with elongated posture less strain on LB reported. Goodfeedback to self massage use ball on wall over ES. Physical Therapy Plan Frequency and Duration Frequency of Treatment 2x/Week Plan of Care Start Date 03/21/23 Plan of Care End Date 05/21/23 Therapeutic Interventions Therapeutic Interventions Home Exercise Program,Joint Mobilizations,Manual Therapy, Neuromuscular Re-education, Patient/Caregiver Education, Self-Care/Home Management,Soft Tissue Mobilization, Therapeutic Activities, Therapeutic Exercises Next Visit Focus/Plan Next Note Type Treatment Note Next Visit Plan Recheck HEP: stretching, paloff press, sit stands, self STMs. POC: Core strengthening, joint mobilizations, STM, ROM/ flexibility
--- NOTE | 2023-03-30 13:06 | PT.OTN ---
Current Diagnoses Stiffness of other specified joint, not elsewhere classified (03/30/23) Other low back pain (03/30/23) Physical Therapy Treatment Note PT-OP-A Visit Information Start: 03/21/23 14:21 Freq: Status: Active Protocol: Document 03/30/23 12:16 SP (Rec: 03/30/23 13:08 SP [id number]) Out-Patient Physical Therapy Visit Information Visit Information Visit Type Treatment Note Visit Start Time 12:16 Visit Stop Time 13:06 Total Visit Minutes 50 Visit Number 4 Number of ANDROID IOS DEVELOPER Visits 2 Evaluation Information Evaluation Date 03/21/23 Precautions Precautions 03/28/23: pt reports [place] [facility] [place], has hearing aids. PT-OP-B Current Condition Start: 03/21/23 14:21 Freq: Status: Active Protocol: Document 03/21/23 12:00 DCW (Rec: 03/21/23 16:21 DCW [id number]) Current Condition History of Current Condition Onset Date Multi-month history Current Complaints Worsening low back pain and stiffness History of Current Condition Pt is a 67 year old male presenting with a multi-month history of low back pain. Reports it has been worsening, but there was no initial injury. Worse in the morning and loosens up as the day progresses. Pain wakes him up every night. Pt reports pain varies in intensity and location. Reports sometimes it is arthritic pain right in my spine, and sometimes it feels more like the muscles across my entire low back. Pain in the muscles can be on the left or the right, but is typically only on one side at a time. goes for daily walks, typically has to stop after ~ 45 minutes due to back pain. Notes no radicular pain into his legs. PT-OP-C Subjective Start: 03/21/23 14:21 Freq: Status: Active Protocol: Document 03/30/23 12:16 SP (Rec: 03/30/23 13:08 SP [id number]) OP-PT Subjective Patient Comments Patient Comments Pt reports felt ok after last tx. He reports back was sore and hurting next day but still went for a walk approx 2.3-2. 6 miles at 17 min/mile and only last 30 min vs 40 usually does. He usually walks [place] and [address] steep incline PT-OP-F Manual Assessment Start: 03/21/23 14:21 Freq: Status: Active Protocol: Document 03/21/23 12:00 DCW (Rec: 03/21/23 16:21 DCW [id number]) Manual Assessments Joint Mobility Assessment Joint Mobility Assessment Severe hypomobility in spine with attempted vertebral mobilization, almost no P->A movement in thoracic and lumbar spine. PT-OP-J Posture/Palpation/Skin Start: 03/21/23 14:21 Freq: Status: Active Protocol: Document 03/21/23 12:00 DCW (Rec: 03/21/23 16:21 DCW [id number]) Posture Evaluation Position Standing Evaluation View Lateral T-Spine Posture Increased Kyphosis L-Spine Posture Flattened PT-OP-K Range of Motion Start: 03/21/23 14:21 Freq: Status: Active Protocol: Document 03/21/23 12:00 DCW (Rec: 03/21/23 16:21 DCW [id number]) Lumbar Spine Range of Motion Lumbar Spine Active Degrees Testing Position Standing Flexion 20 Extension 20 Lateral Flexion Left 61 Lateral Flexion Right 59 ROM Limitations Bony Restriction Comments Lateral flexion measured in cm from fingertips to floor PT-OP-L Special Tests Start: 03/21/23 14:21 Freq: Status: Active Protocol: Document 03/21/23 12:00 DCW (Rec: 03/21/23 16:21 DCW [id number]) Special Tests Lumbar Spine Special Tests Vertical Spine Loading Test Results Negative Straight Leg Raise Test Results Bilateral Hamstring tightness 50? Slump Test Results Negative Compression Test Results Positive - increased c/o pain A-P Shearing Test Results Negative Hip Special Tests LAURITA Test Results Negative Piriformis Test Results Negative PT-OP-M Strength Start: 03/21/23 14:21 Freq: Status: Active Protocol: Document 03/21/23 12:00 DCW (Rec: 03/21/23 16:21 DCW [id number]) Trunk Strength Trunk Manual Muscle Testing Core Stabilization Good contraction with verbal cues, difficulty with contraction during active mobility: 4/5 PT-OP-Q Treatments Start: 03/21/23 14:21 Freq: Status: Active Protocol: Document 03/30/23 12:16 SP (Rec: 03/30/23 13:08 SP [id number]) Gym Equipment Therapeutic Ball KTC Exercise Details KTC Ball Size/Color 65cm tball Body Position Supine Reps/Duration 2x10- #2 TB Trunk Rotation Exercise Details Resisted Trunk Rotation Ball Size/Color Green - 65 cm double green T-band (latex) Body Position Sitting Reps/Duration 2x15 Comments held front, cues trunk rotation /c elongated posture and follow upperbody with arms Pelvic Tilts Exercise Details Pelvic tilts f/b/lateral, LS, march Ball Size/Color Green - 65 cm Body Position Sitting Reps/Duration x15 Comments Mirror to limit upper body movement, rock oversit bones Bridging Exercise Details Bridging /c feet on ball Ball Size/Color Red - 65 cm Body Position Supine Reps/Duration 2x10 Comments good core/ LE effort, painfree LTR Exercise Details LTR Ball Size/Color Red - 65 cm, Body Position Supine Reps/Duration x10 Comments small range good, improved range- painfree Therapeutic Exercises Standing Exercises HABD T Standing Exercise Name added to HEP Side bilateral Resistance TB #3 green latex Reps/Minutes 2x10 Comments cued elongated posture- improve rhomboid and LB neutral Pallof Press Standing Exercise Name Pallof Press Side bilateral Resistance double Lv 3 TB (green latex) Reps/Minutes 2x15 rep Comments cued soft knee, neutral pelvis , pressout lower sternum Other Exercises Tail wag Other Exercise Name added toHEP Side bilateral Resistance AROM Reps/Minutes x10 Comments cued slow pacing, improves range with hips child's pose /c/s SB Other Exercise Name added to HEP Side bilateral Reps/Minutes 30 x2 Comments good form back stretch cat camel Other Exercise Name added to HEP Resistance AROM Reps/Minutes x10 Comments cued increase lumbar extension tolerant- painfree PT-OP-T Assessment and Plan Start: 03/21/23 14:21 Freq: Status: Active Protocol: Document 03/30/23 12:16 SP (Rec: 03/30/23 13:08 SP [id number]) Physical Therapy Assessment Goals Three Impairment Pt lumbar flexion limited to 20? Usp Goal (LTG) Pt to demonstrate improved lumbar flexion in standing by at least 20? to a total of 40? or more to improve ability to reach down to pick objects off the floor without increasing back pain. LTG Duration 05/21/23 Two Impairment Back pain wakes pt up every night Usp Goal (LTG) Pt to report sleeping through the night without waking up due to back pain for at least 4 nights a week. LTG Duration 05/21/23 One Impairment Pt does not have an appropriate home exercise program Short Term Goal (STG) Pt to be independent and compliant with an appropriate HEP STG Duration 04/20/23 Assessment Summary Assessment Pt improved response to functional ROM in quadruped adding to HEP, noted increase lumbar/pelvis ROM with tactile cues and use mirror for segmental mobility with understanding education lessening trunk compensations. Good lumbar increase extension neutral with added rhomboid/LT strengthening during resisted T/HABD. Provided HOs for recall home carryover. Good Physical Therapy Plan Frequency and Duration Frequency of Treatment 2x/Week Plan of Care Start Date 03/21/23 Plan of Care End Date 05/21/23 Therapeutic Interventions Therapeutic Interventions Home Exercise Program,Joint Mobilizations,Manual Therapy, Neuromuscular Re-education, Patient/Caregiver Education, Self-Care/Home Management,Soft Tissue Mobilization, Therapeutic Activities, Therapeutic Exercises Next Visit Focus/Plan Next Note Type Treatment Note Next Visit Plan Recheck HEP: cat/camel, child' s pose SB, tail wag, HABD TB, stretching, paloff press, sit stands, self STMs. POC: Core strengthening, joint mobilizations, STM, ROM/ flexibility
--- NOTE | 2023-04-06 13:00 | PT.OTN ---
Current Diagnoses Stiffness of other specified joint, not elsewhere classified (04/06/23) Other low back pain (04/06/23) Physical Therapy Treatment Note PT-OP-A Visit Information Start: 03/21/23 14:21 Freq: Status: Active Protocol: Document 04/06/23 12:17 SP (Rec: 04/06/23 13:22 SP [id number]) Out-Patient Physical Therapy Visit Information Visit Information Visit Type Treatment Note Visit Start Time 12:17 Visit Stop Time 13:00 Total Visit Minutes 43 Visit Number 5 Number of LINE COOK Visits 3 Evaluation Information Evaluation Date 03/21/23 Precautions Precautions 03/28/23: pt reports [place], has hearing aids. PT-OP-B Current Condition Start: 03/21/23 14:21 Freq: Status: Active Protocol: Document 03/21/23 12:00 DCW (Rec: 03/21/23 16:21 DCW [id number]) Current Condition History of Current Condition Onset Date Multi-month history Current Complaints Worsening low back pain and stiffness History of Current Condition Pt is a 67 year old male presenting with a multi-month history of low back pain. Reports it has been worsening, but there was no initial injury. Worse in the morning and loosens up as the day progresses. Pain wakes him up every night. Pt reports pain varies in intensity and location. Reports sometimes it is arthritic pain right in my spine, and sometimes it feels more like the muscles across my entire low back. Pain in the muscles can be on the left or the right, but is typically only on one side at a time. goes for daily walks, typically has to stop after ~ 45 minutes due to back pain. Notes no radicular pain into his legs. PT-OP-C Subjective Start: 03/21/23 14:21 Freq: Status: Active Protocol: Document 04/06/23 12:17 SP (Rec: 04/06/23 13:22 SP [id number]) OP-PT Subjective Patient Comments Patient Comments Pt reports back muscle soreness after last tx but did ok. He said has been more aware of posture since last tx and suprised how much he slumps over. Got his 65cm tball in the mail. Compliant with HEP and thinks missing a HO, want to review HEP with tball. PT-OP-F Manual Assessment Start: 03/21/23 14:21 Freq: Status: Active Protocol: Document 03/21/23 12:00 DCW (Rec: 03/21/23 16:21 DCW [id number]) Manual Assessments Joint Mobility Assessment Joint Mobility Assessment Severe hypomobility in spine with attempted vertebral mobilization, almost no P->A movement in thoracic and lumbar spine. PT-OP-J Posture/Palpation/Skin Start: 03/21/23 14:21 Freq: Status: Active Protocol: Document 03/21/23 12:00 DCW (Rec: 03/21/23 16:21 DCW [id number]) Posture Evaluation Position Standing Evaluation View Lateral T-Spine Posture Increased Kyphosis L-Spine Posture Flattened PT-OP-K Range of Motion Start: 03/21/23 14:21 Freq: Status: Active Protocol: Document 03/21/23 12:00 DCW (Rec: 03/21/23 16:21 DCW [id number]) Lumbar Spine Range of Motion Lumbar Spine Active Degrees Testing Position Standing Flexion 20 Extension 20 Lateral Flexion Left 61 Lateral Flexion Right 59 ROM Limitations Bony Restriction Comments Lateral flexion measured in cm from fingertips to floor PT-OP-L Special Tests Start: 03/21/23 14:21 Freq: Status: Active Protocol: Document 03/21/23 12:00 DCW (Rec: 03/21/23 16:21 DCW [id number]) Special Tests Lumbar Spine Special Tests Vertical Spine Loading Test Results Negative Straight Leg Raise Test Results Bilateral Hamstring tightness 50? Slump Test Results Negative Compression Test Results Positive - increased c/o pain A-P Shearing Test Results Negative Hip Special Tests LAURITA Test Results Negative Piriformis Test Results Negative PT-OP-M Strength Start: 03/21/23 14:21 Freq: Status: Active Protocol: Document 03/21/23 12:00 DCW (Rec: 03/21/23 16:21 DCW [id number]) Trunk Strength Trunk Manual Muscle Testing Core Stabilization Good contraction with verbal cues, difficulty with contraction during active mobility: 4/5 PT-OP-Q Treatments Start: 03/21/23 14:21 Freq: Status: Active Protocol: Document 04/06/23 12:17 SP (Rec: 04/06/23 13:22 SP [id number]) Gym Equipment Therapeutic Ball KTC Exercise Details KTC Ball Size/Color 65cm tball Body Position Supine Reps/Duration 2x10- #2 TB Trunk Rotation Exercise Details Resisted Trunk Rotation Ball Size/Color Green - 65 cm double aqua T-band (latex) Body Position Sitting Reps/Duration 2x15 Comments held front, cues trunk rotation /c elongated posture and follow upperbody with arms Pelvic Tilts Exercise Details Pelvic tilts f/b/lateral, LS, march Ball Size/Color Green - 65 cm Body Position Sitting Reps/Duration x15 Comments Mirror to limit upper body movement, rock oversit bones Bridging Exercise Details Bridging /c feet on ball Ball Size/Color Red - 65 cm Body Position Supine Reps/Duration 2x10 Comments good core/ LE effort, painfree LTR Exercise Details LTR Ball Size/Color Red - 65 cm, TB #2 added for home 04/06 Body Position Supine Reps/Duration x10 Comments small range good, improved range- painfree Therapeutic Exercises Sidelying Exercises Open Book Sidelying Exercise Name Open Book Reps/Minutes discussed but not performed, feels good Standing Exercises HABD T Standing Exercise Name added to HEP Side bilateral Resistance TB #2 aqua doubled latex Reps/Minutes 2x10 Comments cued elongated posture- improve rhomboid and LB neutral Pallof Press Standing Exercise Name Pallof Press Side bilateral Resistance double Lv 2 TB (aqua latex) Reps/Minutes 2x15 rep Comments cued elonged posture and head back neutral- improved self corrections Other Exercises bird dog Other Exercise Name added to HEP Side bilateral Reps/Minutes 2 reps, switch, 5 sets Comments cued slow pacing- good form downward dog Other Exercise Name added to HEP /c ankle press down Side bilateral Reps/Minutes 2x5 reps Comments cued pelvic lift- good posterior chain cat camel Other Exercise Name reviewed HEP Resistance AROM Reps/Minutes x10 belly to floor Comments cued increase lumbar extension tolerant- painfree PT-OP-T Assessment and Plan Start: 03/21/23 14:21 Freq: Status: Active Protocol: Document 04/06/23 12:17 SP (Rec: 04/06/23 13:22 SP [id number]) Physical Therapy Assessment Goals Three Impairment Pt lumbar flexion limited to 20? General Neurologist Goal (LTG) Pt to demonstrate improved lumbar flexion in standing by at least 20? to a total of 40? or more to improve ability to reach down to pick objects off the floor without increasing back pain. LTG Duration 1/27/24 Two Impairment Back pain wakes pt up every night Halfway Goal (LTG) Pt to report sleeping through the night without waking up due to back pain for at least 4 nights a week. LTG Duration 05/21/23 One Impairment Pt does not have an appropriate home exercise program Short Term Goal (STG) Pt to be independent and compliant with an appropriate HEP STG Duration 04/20/23 Assessment Summary Assessment Pt good response to HEP review , cues for set up and proper form use of added resistance to for core incorporation with Tball support progression. Good understanding with HOs provided today. Added bird dog and downward dog for postural and active extension mobility support. Pt reported didn't realize his BUEs were so weak and this will help get stronger. Education on elongated posture improved self corrections carry at home reports. Physical Therapy Plan Frequency and Duration Frequency of Treatment 2x/Week Plan of Care Start Date 03/21/23 Plan of Care End Date 05/21/23 Therapeutic Interventions Therapeutic Interventions Home Exercise Program,Joint Mobilizations,Manual Therapy, Neuromuscular Re-education, Patient/Caregiver Education, Self-Care/Home Management,Soft Tissue Mobilization, Therapeutic Activities, Therapeutic Exercises Next Visit Focus/Plan Next Note Type Treatment Note Next Visit Plan Recheck HEP: cat/camel, child' s pose SB, tail wag, HABD TB, stretching, paloff press, sit stands, self STMs. POC: Core strengthening, joint mobilizations, STM, ROM/ flexibility
--- NOTE | 2023-04-08 10:30 | PT.OTN ---
Current Diagnoses Stiffness of other specified joint, not elsewhere classified (04/08/23) Other low back pain (04/08/23) Physical Therapy Treatment Note PT-OP-A Visit Information Start: 03/21/23 14:21 Freq: Status: Active Protocol: Document 04/08/23 09:45 DCW (Rec: 04/08/23 10:30 DCW [id number]) Out-Patient Physical Therapy Visit Information Visit Information Visit Type Treatment Note Visit Start Time 09:45 Visit Stop Time 10:30 Total Visit Minutes 45 Visit Number 6 Number of GAS PUMPING STATION OPERATOR Visits 0 Evaluation Information Evaluation Date 03/21/23 Precautions Precautions 03/28/23: pt reports [place], has hearing aids. PT-OP-B Current Condition Start: 03/21/23 14:21 Freq: Status: Active Protocol: Document 03/21/23 12:00 DCW (Rec: 03/21/23 16:21 DCW [id number]) Current Condition History of Current Condition Onset Date Multi-month history Current Complaints Worsening low back pain and stiffness History of Current Condition Pt is a 67 year old male presenting with a multi-month history of low back pain. Reports it has been worsening, but there was no initial injury. Worse in the morning and loosens up as the day progresses. Pain wakes him up every night. Pt reports pain varies in intensity and location. Reports sometimes it is arthritic pain right in my spine, and sometimes it feels more like the muscles across my entire low back. Pain in the muscles can be on the left or the right, but is typically only on one side at a time. goes for daily walks, typically has to stop after ~ 45 minutes due to back pain. Notes no radicular pain into his legs. PT-OP-C Subjective Start: 03/21/23 14:21 Freq: Status: Active Protocol: Document 04/08/23 09:45 DCW (Rec: 04/08/23 10:30 DCW [id number]) OP-PT Subjective Patient Comments Patient Comments Pt unsure if he has made much progress yet. PT-OP-F Manual Assessment Start: 03/21/23 14:21 Freq: Status: Active Protocol: Document 03/21/23 12:00 DCW (Rec: 03/21/23 16:21 DCW [id number]) Manual Assessments Joint Mobility Assessment Joint Mobility Assessment Severe hypomobility in spine with attempted vertebral mobilization, almost no P->A movement in thoracic and lumbar spine. PT-OP-J Posture/Palpation/Skin Start: 03/21/23 14:21 Freq: Status: Active Protocol: Document 03/21/23 12:00 DCW (Rec: 03/21/23 16:21 DCW [id number]) Posture Evaluation Position Standing Evaluation View Lateral T-Spine Posture Increased Kyphosis L-Spine Posture Flattened PT-OP-K Range of Motion Start: 03/21/23 14:21 Freq: Status: Active Protocol: Document 03/21/23 12:00 DCW (Rec: 03/21/23 16:21 DCW [id number]) Lumbar Spine Range of Motion Lumbar Spine Active Degrees Testing Position Standing Flexion 20 Extension 20 Lateral Flexion Left 61 Lateral Flexion Right 59 ROM Limitations Bony Restriction Comments Lateral flexion measured in cm from fingertips to floor PT-OP-L Special Tests Start: 03/21/23 14:21 Freq: Status: Active Protocol: Document 03/21/23 12:00 DCW (Rec: 03/21/23 16:21 DCW [id number]) Special Tests Lumbar Spine Special Tests Vertical Spine Loading Test Results Negative Straight Leg Raise Test Results Bilateral Hamstring tightness 50? Slump Test Results Negative Compression Test Results Positive - increased c/o pain A-P Shearing Test Results Negative Hip Special Tests LAURITA Test Results Negative Piriformis Test Results Negative PT-OP-M Strength Start: 03/21/23 14:21 Freq: Status: Active Protocol: Document 03/21/23 12:00 DCW (Rec: 03/21/23 16:21 DCW [id number]) Trunk Strength Trunk Manual Muscle Testing Core Stabilization Good contraction with verbal cues, difficulty with contraction during active mobility: 4/5 PT-OP-Q Treatments Start: 03/21/23 14:21 Freq: Status: Active Protocol: Document 04/08/23 09:45 DCW (Rec: 04/08/23 10:30 DCW [id number]) Therapeutic Exercises Supine Exercises PPT /c SLR Supine Exercise Name PPT /c SLR Side bilateral PPT /c Marching Supine Exercise Name PPT /c Supine Marching Side bilateral PPT Supine Exercise Name PPT /c TrA contraction Sidelying Exercises Reverse Clamshell Sidelying Exercise Name Reverse Clamshell Side bilateral Resistance Lv 2 Clamshell Sidelying Exercise Name Clamshell Side bilateral Resistance Lv 2 Standing Exercises BOSU Lunge Standing Exercise Name BOSU Lunge Side bilateral Other Exercises Resisted ambulation Other Exercise Name Resisted side-stepping Resistance Green Manual Therapy Treatment Soft Tissue Mobilization Lumbar Body Location Lumbar paraspinals Mobilization Type Strumming,Sustained Pressure Intensity/Depth Moderate Body Position Sidelying PT-OP-T Assessment and Plan Start: 03/21/23 14:21 Freq: Status: Active Protocol: Document 04/08/23 09:45 DCW (Rec: 04/08/23 10:30 DCW [id number]) Physical Therapy Assessment Goals Three Impairment Pt lumbar flexion limited to 20? Alf Goal (LTG) Pt to demonstrate improved lumbar flexion in standing by at least 20? to a total of 40? or more to improve ability to reach down to pick objects off the floor without increasing back pain. LTG Duration 05/21/23 Two Impairment Back pain wakes pt up every night Sample Paster Goal (LTG) Pt to report sleeping through the night without waking up due to back pain for at least 4 nights a week. LTG Duration 05/21/23 One Impairment Pt does not have an appropriate home exercise program Short Term Goal (STG) Pt to be independent and compliant with an appropriate HEP STG Duration 04/20/23 Assessment Summary Assessment Pt tolerated new exercises well, able to do T-ball exercises at home, so focused on new activities for core and hip stability. Physical Therapy Plan Frequency and Duration Frequency of Treatment 2x/Week Plan of Care Start Date 03/21/23 Plan of Care End Date 05/21/23 Therapeutic Interventions Therapeutic Interventions Home Exercise Program,Joint Mobilizations,Manual Therapy, Neuromuscular Re-education, Patient/Caregiver Education, Self-Care/Home Management,Soft Tissue Mobilization, Therapeutic Activities, Therapeutic Exercises Next Visit Focus/Plan Next Note Type Treatment Note Next Visit Plan Recheck HEP: cat/camel, child' s pose SB, tail wag, HABD TB, stretching, paloff press, sit stands, self STMs. POC: Core strengthening, joint mobilizations, STM, ROM/ flexibility
--- NOTE | 2023-04-11 13:04 | PT.OTN ---
Current Diagnoses Stiffness of other specified joint, not elsewhere classified (04/11/23) Other low back pain (04/11/23) Physical Therapy Treatment Note PT-OP-A Visit Information Start: 03/21/23 14:21 Freq: Status: Active Protocol: Document 04/11/23 12:18 SP (Rec: 04/11/23 13:05 SP [id number]) Out-Patient Physical Therapy Visit Information Visit Information Visit Type Treatment Note Visit Start Time 12:18 Visit Stop Time 13:04 Total Visit Minutes 46 Visit Number 7 Number of CULTURE MEDIA LABORATORY ASSISTANT Visits 1 Evaluation Information Evaluation Date 03/21/23 Precautions Precautions 03/28/23: pt reports [place], [place] hearing aids. PT-OP-B Current Condition Start: 03/21/23 14:21 Freq: Status: Active Protocol: Document 03/21/23 12:00 DCW (Rec: 03/21/23 16:21 DCW [id number]) Current Condition History of Current Condition Onset Date Multi-month history Current Complaints Worsening low back pain and stiffness History of Current Condition Pt is a 67 year old male presenting with a multi-month history of low back pain. Reports it has been worsening, but there was no initial injury. Worse in the morning and loosens up as the day progresses. Pain wakes him up every night. Pt reports pain varies in intensity and location. Reports sometimes it is arthritic pain right in my spine, and sometimes it feels more like the muscles across my entire low back. Pain in the muscles can be on the left or the right, but is typically only on one side at a time. goes for daily walks, typically has to stop after ~ 45 minutes due to back pain. Notes no radicular pain into his legs. PT-OP-C Subjective Start: 03/21/23 14:21 Freq: Status: Active Protocol: Document 04/11/23 12:18 SP (Rec: 04/11/23 13:05 SP [id number]) OP-PT Subjective Patient Comments Patient Comments Pt reports compliant with HEP. He states PT-OP-F Manual Assessment Start: 03/21/23 14:21 Freq: Status: Active Protocol: Document 03/21/23 12:00 DCW (Rec: 03/21/23 16:21 DCW [id number]) Manual Assessments Joint Mobility Assessment Joint Mobility Assessment Severe hypomobility in spine with attempted vertebral mobilization, almost no P->A movement in thoracic and lumbar spine. PT-OP-J Posture/Palpation/Skin Start: 03/21/23 14:21 Freq: Status: Active Protocol: Document 03/21/23 12:00 DCW (Rec: 03/21/23 16:21 DCW [id number]) Posture Evaluation Position Standing Evaluation View Lateral T-Spine Posture Increased Kyphosis L-Spine Posture Flattened PT-OP-K Range of Motion Start: 03/21/23 14:21 Freq: Status: Active Protocol: Document 03/21/23 12:00 DCW (Rec: 03/21/23 16:21 DCW [id number]) Lumbar Spine Range of Motion Lumbar Spine Active Degrees Testing Position Standing Flexion 20 Extension 20 Lateral Flexion Left 61 Lateral Flexion Right 59 ROM Limitations Bony Restriction Comments Lateral flexion measured in cm from fingertips to floor PT-OP-L Special Tests Start: 03/21/23 14:21 Freq: Status: Active Protocol: Document 03/21/23 12:00 DCW (Rec: 03/21/23 16:21 DCW [id number]) Special Tests Lumbar Spine Special Tests Vertical Spine Loading Test Results Negative Straight Leg Raise Test Results Bilateral Hamstring tightness 50? Slump Test Results Negative Compression Test Results Positive - increased c/o pain A-P Shearing Test Results Negative Hip Special Tests LAURITA Test Results Negative Piriformis Test Results Negative PT-OP-M Strength Start: 03/21/23 14:21 Freq: Status: Active Protocol: Document 03/21/23 12:00 DCW (Rec: 03/21/23 16:21 DCW [id number]) Trunk Strength Trunk Manual Muscle Testing Core Stabilization Good contraction with verbal cues, difficulty with contraction during active mobility: 4/5 PT-OP-Q Treatments Start: 03/21/23 14:21 Freq: Status: Active Protocol: Document 04/11/23 12:18 SP (Rec: 04/11/23 13:05 SP [id number]) Gym Equipment Shuttle Recovery unilateral squat Resistance 37# (1 dark blue) Reps/Time x15 each LE bilateral squat Details cued //knees, heel press Resistance 62# (2 dark blue bands) Reps/Time x20 Therapeutic Exercises Supine Exercises PPT /c SLR Supine Exercise Name PPT /c SLR Side bilateral Reps/Minutes 2x10 Comments cued TKE and slight hip ER, no higher than opp LE PPT /c Marching Supine Exercise Name PPT /c Supine: sequencial LE Marching (90/90 table top) Side bilateral Reps/Minutes x10 each side Comments max cues with demo to follow for proper form Sidelying Exercises Reverse Clamshell Sidelying Exercise Name Reverse Clamshell Side bilateral Resistance Lv 1 (continue L2 next tx) Reps/Minutes x10 Comments Good muscle tiring but seems little easy- Lvl 2 next tx Open Book Sidelying Exercise Name Open Book- initiated in PT- check future appt for HEP Side bilateral Reps/Minutes x5 each side Comments cued head turn with arm HABD scapular glide/TS rotation- gd ant shld stretc Standing Exercises BOSU Lunge Standing Exercise Name BOSU Lunge- fwd & lateral Side bilateral Reps/Minutes 2x10 each direction Comments cued as needed proper form Other Exercises Resisted ambulation Other Exercise Name Resisted side-stepping Resistance Green (ouzinkie green latex) at ankles Reps/Minutes 15 ft x2 laps Comments cued elongated posture, little bigger than normal step bird dog Other Exercise Name reviewed HEP Side bilateral Reps/Minutes 2 reps, switch, 5 sets Comments cued slow pacing- good form but little unsteady, improve cue not reach high downward dog Other Exercise Name reviewed HEP /c ankle press down Side bilateral Reps/Minutes 2x5 reps Comments cued pelvic lift- good posterior chain- tiring on arms but able to do PT-OP-T Assessment and Plan Start: 03/21/23 14:21 Freq: Status: Active Protocol: Document 04/11/23 12:18 SP (Rec: 04/11/23 13:05 SP [id number]) Physical Therapy Assessment Goals Three Impairment Pt lumbar flexion limited to 20? [facility] Goal (LTG) Pt to demonstrate improved lumbar flexion in standing by at least 20? to a total of 40? or more to improve ability to reach down to pick objects off the floor without increasing back pain. LTG Duration 05/21/23 Two Impairment Back pain wakes pt up every night Plating Engineer Goal (LTG) Pt to report sleeping through the night without waking up due to back pain for at least 4 nights a week. LTG Duration 05/21/23 One Impairment Pt does not have an appropriate home exercise program Short Term Goal (STG) Pt to be independent and compliant with an appropriate HEP STG Duration 04/20/23 Assessment Summary Assessment Cues for elongated posturing alignment during bird dog & resisted band walk and tolerant LE range during PPT SLR and sequencial marching to allow stability, core/ hip abd strengthening reported decreased LB recruitment. Physical Therapy Plan Frequency and Duration Frequency of Treatment 2x/Week Plan of Care Start Date 03/21/23 Plan of Care End Date 05/21/23 Therapeutic Interventions Therapeutic Interventions Home Exercise Program,Joint Mobilizations,Manual Therapy, Neuromuscular Re-education, Patient/Caregiver Education, Self-Care/Home Management,Soft Tissue Mobilization, Therapeutic Activities, Therapeutic Exercises Next Visit Focus/Plan Next Note Type Treatment Note Next Visit Plan Recheck HEP: flexibility, core and hip strengthening proper form. Add body mechanics incorporation carryover eg, hip hinge, carrying items up stairs, SLS activities, lateral step down. POC: Core strengthening, joint mobilizations, STM, ROM/ flexibility
--- NOTE | 2023-04-13 12:48 | PT.OTN ---
Current Diagnoses Stiffness of other specified joint, not elsewhere classified (04/13/23) Other low back pain (04/13/23) Physical Therapy Treatment Note PT-OP-A Visit Information Start: 03/21/23 14:21 Freq: Status: Active Protocol: Document 04/13/23 12:00 DCW (Rec: 04/13/23 12:48 DCW [id number]) Out-Patient Physical Therapy Visit Information Visit Information Visit Type Progress Note Visit Start Time 12:00 Visit Stop Time 12:45 Total Visit Minutes 45 Visit Number 8 Number of ELECTRIC TRAIN DRIVER Visits 0 Evaluation Information Evaluation Date 03/21/23 Precautions Precautions 03/28/23: pt reports [place], has hearing aids. PT-OP-B Current Condition Start: 03/21/23 14:21 Freq: Status: Active Protocol: Document 03/21/23 12:00 DCW (Rec: 03/21/23 16:21 DCW [id number]) Current Condition History of Current Condition Onset Date Multi-month history Current Complaints Worsening low back pain and stiffness History of Current Condition Pt is a 67 year old male presenting with a multi-month history of low back pain. Reports it has been worsening, but there was no initial injury. Worse in the morning and loosens up as the day progresses. Pain wakes him up every night. Pt reports pain varies in intensity and location. Reports sometimes it is arthritic pain right in my spine, and sometimes it feels more like the muscles across my entire low back. Pain in the muscles can be on the left or the right, but is typically only on one side at a time. goes for daily walks, typically has to stop after ~ 45 minutes due to back pain. Notes no radicular pain into his legs. PT-OP-C Subjective Start: 03/21/23 14:21 Freq: Status: Active Protocol: Document 04/13/23 12:00 DCW (Rec: 04/13/23 12:48 DCW [id number]) OP-PT Subjective Patient Comments Patient Comments Pt notes that after thinking about it more last week, he is doing quite a bit better. Still sore overall when first getting up, but is no longer having the pain when laying in bed or rolling to change position. PT-OP-F Manual Assessment Start: 03/21/23 14:21 Freq: Status: Active Protocol: Document 03/21/23 12:00 DCW (Rec: 03/21/23 16:21 DCW [id number]) Manual Assessments Joint Mobility Assessment Joint Mobility Assessment Severe hypomobility in spine with attempted vertebral mobilization, almost no P->A movement in thoracic and lumbar spine. PT-OP-J Posture/Palpation/Skin Start: 03/21/23 14:21 Freq: Status: Active Protocol: Document 03/21/23 12:00 DCW (Rec: 03/21/23 16:21 DCW [id number]) Posture Evaluation Position Standing Evaluation View Lateral T-Spine Posture Increased Kyphosis L-Spine Posture Flattened PT-OP-K Range of Motion Start: 03/21/23 14:21 Freq: Status: Active Protocol: Document 03/21/23 12:00 DCW (Rec: 03/21/23 16:21 DCW [id number]) Lumbar Spine Range of Motion Lumbar Spine Active Degrees Testing Position Standing Flexion 20 Extension 20 Lateral Flexion Left 61 Lateral Flexion Right 59 ROM Limitations Bony Restriction Comments Lateral flexion measured in cm from fingertips to floor PT-OP-L Special Tests Start: 03/21/23 14:21 Freq: Status: Active Protocol: Document 03/21/23 12:00 DCW (Rec: 03/21/23 16:21 DCW [id number]) Special Tests Lumbar Spine Special Tests Vertical Spine Loading Test Results Negative Straight Leg Raise Test Results Bilateral Hamstring tightness 50? Slump Test Results Negative Compression Test Results Positive - increased c/o pain A-P Shearing Test Results Negative Hip Special Tests LAURITA Test Results Negative Piriformis Test Results Negative PT-OP-M Strength Start: 03/21/23 14:21 Freq: Status: Active Protocol: Document 03/21/23 12:00 DCW (Rec: 03/21/23 16:21 DCW [id number]) Trunk Strength Trunk Manual Muscle Testing Core Stabilization Good contraction with verbal cues, difficulty with contraction during active mobility: 4/5 PT-OP-Q Treatments Start: 03/21/23 14:21 Freq: Status: Active Protocol: Document 04/13/23 12:00 DCW (Rec: 04/13/23 12:48 DCW [id number]) Gym Equipment Shuttle Recovery unilateral squat Resistance 37# (1 dark blue) Reps/Time x15 each LE bilateral squat Resistance 62# (2 dark blue bands) Reps/Time x20 Therapeutic Exercises Standing Exercises BOSU Lunge Standing Exercise Name BOSU Lunge- fwd & lateral Side bilateral Reps/Minutes 2x10 each direction Comments cued as needed proper form Other Exercises Hip Extension Other Exercise Name Hip Extension Side bilateral Resistance Green Resisted ambulation Other Exercise Name Resisted side-stepping Resistance Green Manual Therapy Treatment Soft Tissue Mobilization Lumbar Body Location Lumbar paraspinals Mobilization Type Strumming,Sustained Pressure Intensity/Depth Moderate Body Position Sidelying PT-OP-T Assessment and Plan Start: 03/21/23 14:21 Freq: Status: Active Protocol: Document 04/13/23 12:00 DCW (Rec: 04/13/23 12:48 DCW [id number]) Physical Therapy Assessment Goals Three Impairment Pt lumbar flexion limited to 20? Cemetery Counselor Goal (LTG) Pt to demonstrate improved lumbar flexion in standing by at least 20? to a total of 40? or more to improve ability to reach down to pick objects off the floor without increasing back pain. LTG Duration 05/21/23 Two Impairment Back pain wakes pt up every night Cemetery Counselor Goal (LTG) Pt to report sleeping through the night without waking up due to back pain for at least 4 nights a week. LTG Duration Met One Impairment Pt does not have an appropriate home exercise program Short Term Goal (STG) Pt to be independent and compliant with an appropriate HEP STG Duration Met Assessment Summary Assessment Pt continues to respond well to therapy, is no longer woken up with back pain during the night. Has been compliant with his HEP. Is still somewhat limited with lumbar mobility, and still experiences increased discomfort when waking up in the morning. Continue to focus on mobility, strength, and pain control. Physical Therapy Plan Frequency and Duration Frequency of Treatment 2x/Week Plan of Care Start Date 03/21/23 Plan of Care End Date 05/21/23 Therapeutic Interventions Therapeutic Interventions Home Exercise Program,Joint Mobilizations,Manual Therapy, Neuromuscular Re-education, Patient/Caregiver Education, Self-Care/Home Management,Soft Tissue Mobilization, Therapeutic Activities, Therapeutic Exercises Next Visit Focus/Plan Next Note Type Treatment Note Next Visit Plan Recheck HEP: flexibility, core and hip strengthening proper form. Add body mechanics incorporation carryover eg, hip hinge, carrying items up stairs, SLS activities, lateral step down. POC: Core strengthening, joint mobilizations, STM, ROM/ flexibility
--- NOTE | 2023-05-02 08:15 | PT.OTN ---
Current Diagnoses Stiffness of other specified joint, not elsewhere classified (05/02/23) Other low back pain (05/02/23) Physical Therapy Treatment Note PT-OP-A Visit Information Start: 03/21/23 14:21 Freq: Status: Active Protocol: Document 05/02/23 07:32 SP (Rec: 05/02/23 08:18 SP [id number]) Out-Patient Physical Therapy Visit Information Visit Information Visit Type Progress Note Visit Note 06/04 post PN Visit Start Time 07:32 Visit Stop Time 08:15 Total Visit Minutes 43 Visit Number 9 Number of LACE ROLLER OPERATOR Visits 1 Evaluation Information Evaluation Date 03/21/23 Precautions Precautions 03/28/23: pt reports [place], has hearing aids. PT-OP-B Current Condition Start: 03/21/23 14:21 Freq: Status: Active Protocol: Document 03/21/23 12:00 DCW (Rec: 03/21/23 16:21 DCW [id number]) Current Condition History of Current Condition Onset Date Multi-month history Current Complaints Worsening low back pain and stiffness History of Current Condition Pt is a 67 year old male presenting with a multi-month history of low back pain. Reports it has been worsening, but there was no initial injury. Worse in the morning and loosens up as the day progresses. Pain wakes him up every night. Pt reports pain varies in intensity and location. Reports sometimes it is arthritic pain right in my spine, and sometimes it feels more like the muscles across my entire low back. Pain in the muscles can be on the left or the right, but is typically only on one side at a time. goes for daily walks, typically has to stop after ~ 45 minutes due to back pain. Notes no radicular pain into his legs. PT-OP-C Subjective Start: 03/21/23 14:21 Freq: Status: Active Protocol: Document 05/02/23 07:32 SP (Rec: 05/02/23 08:18 SP [id number]) OP-PT Subjective Patient Comments Patient Comments Pt reports was busy over the holidays and not did HEP as much as should have and noticed when didn't stretch was sore and tight in LB. He said is wearing a heart monitor since last TueApr 26 for 1 week. He said has on as follow up from [facility], catheter and 1 yr ago monitor how doing. PT-OP-F Manual Assessment Start: 03/21/23 14:21 Freq: Status: Active Protocol: Document 03/21/23 12:00 DCW (Rec: 03/21/23 16:21 DCW [id number]) Manual Assessments Joint Mobility Assessment Joint Mobility Assessment Severe hypomobility in spine with attempted vertebral mobilization, almost no P->A movement in thoracic and lumbar spine. PT-OP-J Posture/Palpation/Skin Start: 03/21/23 14:21 Freq: Status: Active Protocol: Document 03/21/23 12:00 DCW (Rec: 03/21/23 16:21 DCW [id number]) Posture Evaluation Position Standing Evaluation View Lateral T-Spine Posture Increased Kyphosis L-Spine Posture Flattened PT-OP-K Range of Motion Start: 03/21/23 14:21 Freq: Status: Active Protocol: Document 03/21/23 12:00 DCW (Rec: 03/21/23 16:21 DCW [id number]) Lumbar Spine Range of Motion Lumbar Spine Active Degrees Testing Position Standing Flexion 20 Extension 20 Lateral Flexion Left 61 Lateral Flexion Right 59 ROM Limitations Bony Restriction Comments Lateral flexion measured in cm from fingertips to floor PT-OP-L Special Tests Start: 03/21/23 14:21 Freq: Status: Active Protocol: Document 03/21/23 12:00 DCW (Rec: 03/21/23 16:21 DCW [id number]) Special Tests Lumbar Spine Special Tests Vertical Spine Loading Test Results Negative Straight Leg Raise Test Results Bilateral Hamstring tightness 50? Slump Test Results Negative Compression Test Results Positive - increased c/o pain A-P Shearing Test Results Negative Hip Special Tests LAURITA Test Results Negative Piriformis Test Results Negative PT-OP-M Strength Start: 03/21/23 14:21 Freq: Status: Active Protocol: Document 03/21/23 12:00 DCW (Rec: 03/21/23 16:21 DCW [id number]) Trunk Strength Trunk Manual Muscle Testing Core Stabilization Good contraction with verbal cues, difficulty with contraction during active mobility: 4/5 PT-OP-Q Treatments Start: 03/21/23 14:21 Freq: Status: Active Protocol: Document 05/02/23 07:32 SP (Rec: 05/02/23 08:18 SP [id number]) Gym Equipment Shuttle Recovery unilateral squat Details continued cue for heel drive glut/prox quad fac, knees ok Resistance 37# (1 dark blue) Reps/Time x15 each LE bilateral squat Details cued heel drive glut fac, less knee strain Resistance 62# (2 dark blue bands) Reps/Time x20- challenge. Therapeutic Exercises Sidelying Exercises Reverse Clamshell Sidelying Exercise Name Reverse Clamshell Side bilateral Resistance L2 at ankle Reps/Minutes x10 Comments Good muscle tiring Clamshell Sidelying Exercise Name Clamshell Side bilateral Resistance Lv 2 Reps/Minutes x15 reps Comments good hip ERs tiring Open Book Sidelying Exercise Name Open Book- Reviewed HEP Side bilateral Reps/Minutes x5 each side warm up post manual (states performs 10 at home and beneficial Comments good form, cued slower pacing Sitting Exercises lumbar flexion Sitting Exercise Name LS ROM forward Equipment Used sit on mesh chair Reps/Minutes x10 Comments good feedback LS musculature stretching Standing Exercises hip hinge DL Standing Exercise Name trialed, very tight HS and strain on LE- hold Other Exercises Resisted ambulation Other Exercise Name Resisted side-stepping Resistance Lv 2 aqua at ankles Reps/Minutes 20 ft x3 laps Comments cued iniatial step eccentric together for stability downward dog Other Exercise Name reviewed HEP /c ankle press down Side bilateral Reps/Minutes x5 reps Comments cued pelvic lift- good posterior chain- tiring on arms but able to do Therapeutic Activity Therapeutic Activity body mechanics Name elongated posturing, TA Reps/Minutes 2 min Comments 1. lifting crate 10# leg wts from floor 2. asc/descend stairs- receiprocal stepping Manual Therapy Treatment Soft Tissue Mobilization B hips Body Location glut med & piriformis Mobilization Type Sustained Pressure,Other Intensity/Depth Moderate Comments MWM hip IR & ER Lumbar Body Location Lumbar paraspinals Mobilization Type Strumming,Sustained Pressure Intensity/Depth Moderate Body Position Prone PT-OP-T Assessment and Plan Start: 03/21/23 14:21 Freq: Status: Active Protocol: Document 05/02/23 07:32 SP (Rec: 05/02/23 08:18 SP [id number]) Physical Therapy Assessment Goals Three Impairment Pt lumbar flexion limited to 20? Senior Living Goal (LTG) Pt to demonstrate improved lumbar flexion in standing by at least 20? to a total of 40? or more to improve ability to reach down to pick objects off the floor without increasing back pain. LTG Duration 05/21/23 Two Impairment Back pain wakes pt up every night Senior Living Goal (LTG) Pt to report sleeping through the night without waking up due to back pain for at least 4 nights a week. LTG Duration Met One Impairment Pt does not have an appropriate home exercise program Short Term Goal (STG) Pt to be independent and compliant with an appropriate HEP STG Duration Met Assessment Summary Assessment Pt good feedback response post manual, less tension in LB. Good muscle tiring effort with hip abd/ER strengthening. Education on postural alignment elevation and use of TA if feel LS musculature stressors, good carryover correcitons with cues during education in self care picking up items and carrying up/ down stairs, improved stability and no LB pain reported. Recommend continue flexibility and progression in functional strethening with good mechanics. PT tends to have a rounded posture and trying to be more aware corrections. Physical Therapy Plan Frequency and Duration Frequency of Treatment 2x/Week Plan of Care Start Date 03/21/23 Plan of Care End Date 05/21/23 Therapeutic Interventions Therapeutic Interventions Home Exercise Program,Joint Mobilizations,Manual Therapy, Neuromuscular Re-education, Patient/Caregiver Education, Self-Care/Home Management,Soft Tissue Mobilization, Therapeutic Activities, Therapeutic Exercises Next Visit Focus/Plan Next Note Type Treatment Note Next Visit Plan Recheck HEP: flexibility, core and hip strengthening proper form. Add body mechanics incorporation carryover eg, hip hinge, carrying items up stairs, SLS activities, lateral step down. POC: Core strengthening, joint mobilizations, STM, ROM/ flexibility
--- NOTE | 2023-05-18 09:53 | PT.OTN ---
Current Diagnoses Stiffness of other specified joint, not elsewhere classified (05/18/23) Other low back pain (05/18/23) Physical Therapy Treatment Note PT-OP-A Visit Information Start: 03/21/23 14:21 Freq: Status: Active Protocol: Document 05/18/23 09:05 SP (Rec: 05/18/23 09:53 SP [id number]) Out-Patient Physical Therapy Visit Information Visit Information Visit Type Treatment Note Visit Note 07/02 post PN Visit Start Time 09:05 Visit Stop Time 09:53 Visit Number 10 Number of CARPENTER INSPECTOR Visits 2 Evaluation Information Evaluation Date 03/21/23 Precautions Precautions 03/28/23: pt reports [place], has hearing aids. PT-OP-B Current Condition Start: 03/21/23 14:21 Freq: Status: Active Protocol: Document 03/21/23 12:00 DCW (Rec: 03/21/23 16:21 DCW [id number]) Current Condition History of Current Condition Onset Date Multi-month history Current Complaints Worsening low back pain and stiffness History of Current Condition Pt is a 67 year old male presenting with a multi-month history of low back pain. Reports it has been worsening, but there was no initial injury. Worse in the morning and loosens up as the day progresses. Pain wakes him up every night. Pt reports pain varies in intensity and location. Reports sometimes it is arthritic pain right in my spine, and sometimes it feels more like the muscles across my entire low back. Pain in the muscles can be on the left or the right, but is typically only on one side at a time. goes for daily walks, typically has to stop after ~ 45 minutes due to back pain. Notes no radicular pain into his legs. PT-OP-C Subjective Start: 03/21/23 14:21 Freq: Status: Active Protocol: Document 05/18/23 09:05 SP (Rec: 05/18/23 09:53 SP [id number]) OP-PT Subjective Patient Comments Patient Comments Pt reports having pain over R mid R lateral ribcage after walks approx 1 hr. He wakes up during the night to use bathroom and notices back pain , takes time adjust positioning for comfort lessen /relieve back pain and sometimes closer to time wakes up if reposition back pian prevents ability to go back to sleep, nightly. PT-OP-F Manual Assessment Start: 03/21/23 14:21 Freq: Status: Active Protocol: Document 03/21/23 12:00 DCW (Rec: 03/21/23 16:21 DCW [id number]) Manual Assessments Joint Mobility Assessment Joint Mobility Assessment Severe hypomobility in spine with attempted vertebral mobilization, almost no P->A movement in thoracic and lumbar spine. PT-OP-J Posture/Palpation/Skin Start: 03/21/23 14:21 Freq: Status: Active Protocol: Document 03/21/23 12:00 DCW (Rec: 03/21/23 16:21 DCW [id number]) Posture Evaluation Position Standing Evaluation View Lateral T-Spine Posture Increased Kyphosis L-Spine Posture Flattened PT-OP-K Range of Motion Start: 03/21/23 14:21 Freq: Status: Active Protocol: Document 03/21/23 12:00 DCW (Rec: 03/21/23 16:21 DCW [id number]) Lumbar Spine Range of Motion Lumbar Spine Active Degrees Testing Position Standing Flexion 20 Extension 20 Lateral Flexion Left 61 Lateral Flexion Right 59 ROM Limitations Bony Restriction Comments Lateral flexion measured in cm from fingertips to floor PT-OP-L Special Tests Start: 03/21/23 14:21 Freq: Status: Active Protocol: Document 03/21/23 12:00 DCW (Rec: 03/21/23 16:21 DCW [id number]) Special Tests Lumbar Spine Special Tests Vertical Spine Loading Test Results Negative Straight Leg Raise Test Results Bilateral Hamstring tightness 50? Slump Test Results Negative Compression Test Results Positive - increased c/o pain A-P Shearing Test Results Negative Hip Special Tests LAURITA Test Results Negative Piriformis Test Results Negative PT-OP-M Strength Start: 03/21/23 14:21 Freq: Status: Active Protocol: Document 03/21/23 12:00 DCW (Rec: 03/21/23 16:21 DCW [id number]) Trunk Strength Trunk Manual Muscle Testing Core Stabilization Good contraction with verbal cues, difficulty with contraction during active mobility: 4/5 PT-OP-Q Treatments Start: 03/21/23 14:21 Freq: Status: Active Protocol: Document 05/18/23 09:05 SP (Rec: 05/18/23 09:53 SP [id number]) Gym Equipment Therapeutic Ball KTC Exercise Details KTC Ball Size/Color 65cm tball Body Position Supine Reps/Duration 2x10- Comments painfree, cues maintain LB toward floor, no arching Bridging Comments 05/18/23 causes back pain- DC LTR Exercise Details LTR Ball Size/Color Red - 65 cm, AROM Body Position Supine Reps/Duration x10 Comments small range good, improved range- painfree Therapeutic Exercises Supine Exercises stretching Supine Exercise Name 1. SKTC 2. piriformis 3. FIg 4 Side bilateral Reps/Minutes 30 x2 each Comments cued breath allow lengthening in LB, Sidelying Exercises Open Book Sidelying Exercise Name Open Book- Reviewed HEP Side bilateral Reps/Minutes x5 each side warm up post manual (states performs 10 at home and beneficial Comments good form, cued slower pacing Sitting Exercises sit stands Sitting Exercise Name STS Resistance 10# DB Comments good core, leg muscle tiring, painfree back Standing Exercises deadlift Standing Exercise Name added to HEP Resistance 4# leg wt on dowel Equipment Used to 16 step Reps/Minutes x8 reps Comments cued scap retraction, soft knee, hip hinge- good active back stretch trunk rotation Standing Exercise Name progress added vs paloff press Side bilateral Resistance hoh latex back (dark blue non latex in PT) Equipment Used arms front 90 deg Reps/Minutes 10 reps Comments cued core fac, hips front, upper rotation- painfree lat obliques tiring Pec Stretch Standing Exercise Name Corner/Doorway Pec Stretch and hip flexor stretch Side bilateral Reps/Minutes 30 x2 Comments cued split stance, elongated posture, CS chin nod/tuck, range painfree pec Pallof Press Standing Exercise Name easy- DC Other Exercises Hip Extension Other Exercise Name Hip Extension- added to HEP Side bilateral Resistance Green at ankles Reps/Minutes discussed not performed bird dog Other Exercise Name reviewed HEP Side bilateral Reps/Minutes 4 reps x2, manny pose between back stretch Comments cued slow pacing- good form but little unsteady, improve cue not reach high downward dog Other Exercise Name to hard on arms- DC 05/18/23 child's pose /c/s SB Other Exercise Name reviewed HEP- between bird dog Side bilateral Reps/Minutes 30 x2 Comments good form back stretch cat camel Other Exercise Name discussed 05/18/23 states causes Resistance AROM Reps/Minutes x10 belly to floor Comments cued increase lumbar extension tolerant- painfree PT-OP-T Assessment and Plan Start: 03/21/23 14:21 Freq: Status: Active Protocol: Document 05/18/23 09:05 SP (Rec: 05/18/23 09:53 SP [id number]) Physical Therapy Assessment Goals Three Impairment Pt lumbar flexion limited to 20? Residential Goal (LTG) Pt to demonstrate improved lumbar flexion in standing by at least 20? to a total of 40? or more to improve ability to reach down to pick objects off the floor without increasing back pain. 05/18/23: 54 deg trunk flexion LTG Duration 05/21/23 updated 05/18/23 Two Impairment Back pain wakes pt up every night Senior Director [employer]ight Goal (LTG) Pt to report sleeping through the night without waking up due to back pain for at least 4 nights a week. 05/18/23: update/pain: better than used to be, but does have to adjust positioning due to pain and sometimes prevents getting back to sleep when closer to time to wake up. LTG Duration Met (04/13/23) not fully met One Impairment Pt does not have an appropriate home exercise program Short Term Goal (STG) Pt to be independent and compliant with an appropriate HEP STG Duration Met Assessment Summary Assessment Tx focused on HEP review stretching and core& hip strengthening most beneficial condensed within time mgt has allotted. Pt continues to require cues for elongated posturing and slower pacing. Added resisted hip ext and weighted STS for hip strengthening and deadlift for core and active posterior chain flexibility gains wanted to progress, painfree reports . Pt would benefit from continued therapy to progress decrease pain, increase strength and back mobility. Physical Therapy Plan Frequency and Duration Frequency of Treatment 2x/Week Plan of Care Start Date 03/21/23 Plan of Care End Date 05/21/23 Therapeutic Interventions Therapeutic Interventions Home Exercise Program,Joint Mobilizations,Manual Therapy, Neuromuscular Re-education, Patient/Caregiver Education, Self-Care/Home Management,Soft Tissue Mobilization, Therapeutic Activities, Therapeutic Exercises Next Visit Focus/Plan Next Note Type Progress Note Next Visit Plan Update POC next tx. Recheck HEP: flexibility, core and hip strengthening proper form. Add body mechanics incorporation carryover eg, hip hinge, carrying items up stairs, SLS activities, lateral step down. POC: Core strengthening, joint mobilizations, STM, ROM/ flexibility
--- NOTE | 2023-05-23 15:12 | PT.OTN ---
Current Diagnoses Stiffness of other specified joint, not elsewhere classified (05/23/23) Other low back pain (05/23/23) Physical Therapy Treatment Note PT-OP-A Visit Information Start: 03/21/23 14:21 Freq: Status: Active Protocol: Document 05/23/23 14:30 DCW (Rec: 05/23/23 15:12 DCW [id number]) Out-Patient Physical Therapy Visit Information Visit Information Visit Type Progress Note Visit Start Time 14:30 Visit Stop Time 15:10 Visit Number 11 Number of MINE CAPTAIN Visits 0 Evaluation Information Evaluation Date 03/21/23 Precautions Precautions 03/28/23: pt reports [place], has hearing aids. PT-OP-B Current Condition Start: 03/21/23 14:21 Freq: Status: Active Protocol: Document 03/21/23 12:00 DCW (Rec: 03/21/23 16:21 DCW [id number]) Current Condition History of Current Condition Onset Date Multi-month history Current Complaints Worsening low back pain and stiffness History of Current Condition Pt is a 67 year old male presenting with a multi-month history of low back pain. Reports it has been worsening, but there was no initial injury. Worse in the morning and loosens up as the day progresses. Pain wakes him up every night. Pt reports pain varies in intensity and location. Reports sometimes it is arthritic pain right in my spine, and sometimes it feels more like the muscles across my entire low back. Pain in the muscles can be on the left or the right, but is typically only on one side at a time. goes for daily walks, typically has to stop after ~ 45 minutes due to back pain. Notes no radicular pain into his legs. PT-OP-C Subjective Start: 03/21/23 14:21 Freq: Status: Active Protocol: Document 05/23/23 14:30 DCW (Rec: 05/23/23 15:12 DCW [id number]) OP-PT Subjective Patient Comments Patient Comments [place] really good for 4-5 days after my last appointment, then really bad the last day or so. Does feel comfortable with independent HEP PT-OP-F Manual Assessment Start: 03/21/23 14:21 Freq: Status: Active Protocol: Document 05/23/23 14:30 DCW (Rec: 05/23/23 14:56 DCW [id number]) Manual Assessments Joint Mobility Assessment Joint Mobility Assessment Severe hypomobility in spine with attempted vertebral mobilization, almost no P->A movement in thoracic and lumbar spine. PT-OP-J Posture/Palpation/Skin Start: 03/21/23 14:21 Freq: Status: Active Protocol: Document 05/23/23 14:30 DCW (Rec: 05/23/23 14:56 DCW [id number]) Posture Evaluation Position Standing Evaluation View Lateral T-Spine Posture Increased Kyphosis L-Spine Posture Flattened PT-OP-K Range of Motion Start: 03/21/23 14:21 Freq: Status: Active Protocol: Document 05/23/23 14:30 DCW (Rec: 05/23/23 14:56 DCW [id number]) Lumbar Spine Range of Motion Lumbar Spine Active Degrees Testing Position Standing Flexion 50 Extension 20 Lateral Flexion Left 58 Lateral Flexion Right 58 ROM Limitations Bony Restriction Comments Lateral flexion measured in cm from fingertips to floor PT-OP-L Special Tests Start: 03/21/23 14:21 Freq: Status: Active Protocol: Document 05/23/23 14:30 DCW (Rec: 05/23/23 14:56 DCW [id number]) Special Tests Lumbar Spine Special Tests Straight Leg Raise Test Results Bilateral Hamstring tightness 50? Hip Special Tests LAURITA Test Results Negative Piriformis Test Results Negative PT-OP-M Strength Start: 03/21/23 14:21 Freq: Status: Active Protocol: Document 03/21/23 12:00 DCW (Rec: 03/21/23 16:21 DCW [id number]) Trunk Strength Trunk Manual Muscle Testing Core Stabilization Good contraction with verbal cues, difficulty with contraction during active mobility: 4/5 PT-OP-Q Treatments Start: 03/21/23 14:21 Freq: Status: Active Protocol: Document 05/23/23 14:30 DCW (Rec: 05/23/23 15:12 DCW [id number]) Therapeutic Exercises Standing Exercises Hip Hiking Standing Exercise Name Hip Hiking Side bilateral Equipment Used 6 step PT-OP-T Assessment and Plan Start: 03/21/23 14:21 Freq: Status: Active Protocol: Document 05/23/23 14:30 DCW (Rec: 05/23/23 15:12 DCW [id number]) Physical Therapy Assessment Goals Three Impairment Pt lumbar flexion limited to 20? Senior Care Goal (LTG) Pt to demonstrate improved lumbar flexion in standing by at least 20? to a total of 40? or more to improve ability to reach down to pick objects off the floor without increasing back pain. 05/18/23: 54 deg trunk flexion LTG Duration Met Two Impairment Back pain wakes pt up every night Electrotyper Helper Goal (LTG) Pt to report sleeping through the night without waking up due to back pain for at least 4 nights a week. 05/18/23: update/pain: better than used to be, but does have to adjust positioning due to pain and sometimes prevents getting back to sleep when closer to time to wake up. LTG Duration Met (04/13/23) One Impairment Pt does not have an appropriate home exercise program Short Term Goal (STG) Pt to be independent and compliant with an appropriate HEP STG Duration Met Progress Towards Goals Progress Towards Goals Progressing Toward Goals Assessment Summary Assessment Pt feeling better overall, still continues with general back pain and stiffness, but feels like he is ready for discharge to independent [facility]. Physical Therapy Plan Frequency and Duration Frequency of Treatment 2x/Week Plan of Care Start Date 05/23/23 Plan of Care End Date 05/24/23 Therapeutic Interventions Therapeutic Interventions Home Exercise Program,Joint Mobilizations,Manual Therapy, Neuromuscular Re-education, Patient/Caregiver Education, Self-Care/Home Management,Soft Tissue Mobilization, Therapeutic Activities, Therapeutic Exercises Discharge Physical Therapy Discharge Comments Discharge to independent [facility] Next Visit Focus/Plan Next Note Type Discharge Summary
--- NOTE | 2023-05-23 15:12 | PT.OPPOC ---
Physical, Occupational & Speech Therapy At [facility] Current Diagnoses Stiffness of other specified joint, not elsewhere classified (05/23/23) Other low back pain (05/23/23) Visit Care Team Role Provider Type Other Providers Specialty: Address: Phone: Fax: Email: Doctor Ziyad MD Family Provider Non-Staff Specialty: Medical Address: Phone: Fax: Email: SHELLY Colindres Attending Provider Advanced Chairperson Anesthesiology Primary Care Provider Referring Provider Specialty: Medical Address: [address] [place] [address] Email: [email or web address] Plan Of Care PT-OP-T Assessment and Plan Start: 03/21/23 14:21 Freq: Status: Active Protocol: Document 05/23/23 14:30 DCW (Rec: 05/23/23 15:12 DCW [id number]) Physical Therapy Assessment Goals Three Impairment Pt lumbar flexion limited to 20? [facility] Goal (LTG) Pt to demonstrate improved lumbar flexion in standing by at least 20? to a total of 40? or more to improve ability to reach down to pick objects off the floor without increasing back pain. 05/18/23: 54 deg trunk flexion LTG Duration Met Two Impairment Back pain wakes pt up every night [facility] Goal (LTG) Pt to report sleeping through the night without waking up due to back pain for at least 4 nights a week. 05/18/23: update/pain: better than used to be, but does have to adjust positioning due to pain and sometimes prevents getting back to sleep when closer to time to wake up. LTG Duration Met (04/13/23) One Impairment Pt does not have an appropriate home exercise program Short Term Goal (STG) Pt to be independent and compliant with an appropriate HEP STG Duration Met Progress Towards Goals Progress Towards Goals Progressing Toward Goals Assessment Summary Assessment Pt feeling better overall, still continues with general back pain and stiffness, but feels like he is ready for discharge to independent HEP. Physical Therapy Plan Frequency and Duration Frequency of Treatment 2x/Week Plan of Care Start Date 05/23/23 Plan of Care End Date 05/24/23 Therapeutic Interventions Therapeutic Interventions Home Exercise Program,Joint Mobilizations,Manual Therapy, Neuromuscular Re-education, Patient/Caregiver Education, Self-Care/Home Management,Soft Tissue Mobilization, Therapeutic Activities, Therapeutic Exercises Discharge Physical Therapy Discharge Comments Discharge to independent [facility] Next Visit Focus/Plan Next Note Type Discharge Summary Plan of Care Dates Plan of Care Start Date 05/23/23 Plan of Care End Date 05/24/23 Electronically Signed by: Maxx Aldana, PT 05/23/23 0781 If you are in agreement with this Plan of Care, please return a signed and dated copy. I have reviewed this Plan of Care and certify that the skilled therapy services above are required to meet the patient?s needs. Physician Signature Date Printed Name and Credentials Clinical Instructor Signature Printed Name and Credentials
== END 2023-05-26 11:09 | disposition home or self-care (01) ==
LOC: PHYS 14:30
PROVIDERS: PCP Registered Nurse Diabetes Educator; Referring Provider Registered Nurse Diabetes Educator; Visit Provider Registered Nurse Diabetes Educator
DX: M54.59 Other low back pain (principal); M25.69 Stiffness of other specified joint, not elsewhere classified
CPT/HCPCS: 97110; 97140; 97162

== ENCOUNTER 2023-08-27 14:01 | Emergency (ER) | payer MEDICARE, BC, SELFPAY ==
[2023-08-27 14:05] VITALS: BP 171/90; PULSE 71; RESP 16; TEMP 36.4; O2SAT 100; BMI 27.2
[2023-08-27 14:28] LABS: Add Manual Diff / Slide Review NO; Basophils Absolute Auto 100 /uL (0-100); Basophils Percent Auto 0.7 % (0-2); Eosinophils Absolute Auto 100 /uL (0-450); Eosinophils Percent Auto 0.8 % (2-4); Hemoglobin 15.5 g/dL (13.5-17.5); Lymphocytes Absolute Auto 1000 /uL (1100-4500); Lymphocytes Percent Auto 13.1 % (25-40); Mean Corpuscular HGB Conc 34.4 % (30-36); Mean Corpuscular Hemoglobin 30.9 PG (26-34); Monocytes Absolute Auto 800 /uL (0-900); Monocytes Percent Auto 9.9 % (3-14); Neutrophils Absolute Auto 6000 /uL (1500-7000); Neutrophils Percent Auto 75.5 % (50-75); Platelet Count 162 X10^3/uL (150-400)
[2023-08-27 14:29] LABS: INR 1.5 (0.9-1.3); Prothrombin Time 16.7 SECONDS (9.4-12.5)
[2023-08-27 14:34] LABS: Alanine Aminotransferase 22 IU/L (<50); Albumin 4.1 g/dL (3.5-5.0); Albumin Globulin Ratio 1.6 (1.0-2.8); Alkaline Phosphatase 56 U/L (38-126); Aspartate Aminotransferase 24 IU/L (17-59); BUN Creatinine Ratio 15.3 (6-22); Bilirubin Total 0.5 mg/dL (0.2-1.3); Blood Urea Nitrogen 13 mg/dL (9-20); Calcium 8.8 mg/dL (8.4-10.2); Carbon Dioxide 33 mmol/L (22-32); Chloride 104 mmol/L (98-107); Estimated Glomerular Filt Rate > 60 mL/min (>60); Globulin 2.6 g/dL (1.7-4.1); Glucose 99 mg/dL (80-110); HEMOLYSIS < 15 (0-50); Lipase 161 U/L (23-300); Potassium 4.1 mmol/L (3.4-5.1); Sodium 139 mmol/L (137-145); Total Protein 6.7 g/dL (6.3-8.2)
--- NOTE | 2023-08-27 15:57 | ED.ABDPAIN ---
HPI - Abdominal Pain General Chief Complaint: Abdominal Pain Stated Complaint: severe abdominal pain Time Seen by Provider: 08/27/23 15:16 Source: patient and family Mode of arrival: Ambulatory History of Present Illness HPI narrative: Patient is a 68-year-old history of paroxysmal atrial fibrillation on Eliquis, hypertension BPH on Flomax, male who presents today with suprapubic abdominal pain that started yesterday. He denies any nausea vomiting or flank pain. He had a little bit of diarrhea this morning. He has not had any fever or chills. He has not having any sort of chest pain or shortness of breath. He has no testicular pain. Related Data Home Medications Medication Instructions Recorded Confirmed doxazosin 8 mg tablet 8 mg PO DAILY 04/21/18 03/28/23 lansoprazole 15 mg capsule,delayed 15 mg PO DAILY 04/21/18 03/28/23 release (Prevacid) lisinopril 40 mg tablet 40 mg PO DAILY 04/21/18 03/28/23 melatonin 3 mg tablet 3 mg PO BEDTIME PRN Insomnia 04/21/18 03/28/23 trazodone 150 mg tablet 150 mg PO BEDTIME 04/21/18 03/28/23 Vitamin B-12 1 tab PO DAILY 10/23/18 03/28/23 alprazolam 1 mg tablet 1 mg PO DAILY PRN Anxiety 10/23/18 03/28/23 cholecalciferol (vitamin D3) 100 4,000 unit PO DAILY 10/23/18 03/28/23 mcg (4,000 unit) capsule (Vitamin D3) sildenafil 1 dose PO PRN PRN Erectile 10/23/18 03/28/23 Dysfunction apixaban 5 mg tablet (Eliquis) 5 mg PO BID 11/09/22 03/28/23 finasteride 5 mg tablet 5 mg PO DAILY 11/09/22 03/28/23 testosterone undecanoate 237 mg 237 mg PO BID 11/09/22 03/28/23 capsule (Jatenzo) amlodipine 5 mg tablet 5 mg PO DAILY 12/22/22 03/28/23 semaglutide (weight loss) 2.4 mg SUBCUT 12/22/22 03/28/23 mg/0.75 mL subcutaneous pen injector (Erik) Previous Rx's Medication Instructions Recorded carvedilol 25 mg tablet 25 mg PO BID #60 tabs 10/23/18 lidocaine 5 % topical patch 1 patch topical DAILY #15 ea 11/17/22 methocarbamol 500 mg tablet 1,000 mg (2 x 500 mg) PO Q8H PRN 02/07/23 muscle spasm #180 tabs valacyclovir 1 gram tablet 1,000 mg PO DAILY #90 tabs 04/04/23 ciprofloxacin HCl 500 mg tablet 500 mg PO BID #14 tabs 08/27/23 (Cipro) hydrocodone 5 mg-acetaminophen 325 1 tab PO Q6H PRN pain #10 tabs 08/27/23 mg tablet metronidazole 500 mg tablet 500 mg PO Q8H 7 days #21 tabs 08/27/23 Allergies Allergy/AdvReac Type Severity Reaction Status Date / Time hydroxyzine [From Vistaril] AdvReac hyperactivi Verified 08/27/23 14:15 ty Patient History Medical History Lumbar spondylosis Other low back pain HSV-2 (herpes simplex virus 2) infection Low testosterone Dyslipidemia Impaired fasting blood sugar HTN (hypertension) Atrial fibrillation Surgical History No pertinent past surgical history Social History Smoking Status: Former smoker Smoking Status: Former smoker alcohol intake frequency: 0-2 drinks per day Substance Use Type: does not use Exam Initial Vital Signs Initial Vital Signs: Vital Signs Temperature 97.6 F 08/27/23 14:05 Pulse Rate 71 08/27/23 14:05 Respiratory Rate 16 08/27/23 14:05 Blood Pressure 171/90 H 08/27/23 14:05 Pulse Oximetry 100 08/27/23 14:05 Oxygen Delivery Method Room Air 08/27/23 14:05 GENERAL: Alert 68-year-old male appears slightly uncomfortable HEENT: Head atraumatic,EOMI, pupils reactive, face symmetric, [moist] mucous membranes CARDIOVASCULAR: Regular rate and rhythm without murmurs, rubs or gallops. RESPIRATORY: Breath sounds equal bilaterally, no wheezes rales or rhonchi. ABDOMEN: Soft, mild suprapubic tenderness no guarding no rebound no significant swelling or bladder distention appreciated : No CVA tenderness EXTREMITIES: Normal range of motion, no clubbing or edema. Neurovascularly intact NEUROLOGICAL: Alert and oriented x4.Normal gait and speech. SKIN: Warm, dry, no laceration, no petechiae, no rashes or lesions. Course Orders Ordered: ED Orders 08/27/23 14:16 EKG-12 Lead Stat 08/27/23 14:20 Complete Blood Count AUTO DIFF Stat Comprehensive Metabolic Panel Stat Lipase Stat Prothrombin Time INR Stat 08/27/23 16:18 CT abdomen pelvis w con Stat Discontinued Medications Hydrocodone Bitart/Acetaminophen (Hydrocodone/Acet 5/325 Prepack) 1 bottle MISC DIRECTED ONE Stop: 08/27/23 18:09 Last Admin: 08/27/23 18:17 Dose: 1 bottle Documented By: JORDAN Ondansetron HCl (Ondansetron 4 Mg/2 Ml Inj) 4 mg IV NOW PRN PRN Reason: Nausea And Vomiting Vital Signs Vital signs: Vital Signs - 8 hr 08/27/23 14:05 08/27/23 18:23 Temperature 97.6 F Pulse Rate 71 70 Respiratory Rate 16 16 Blood Pressure 171/90 H 155/78 H Pulse Oximetry 100 99 Oxygen Delivery Method Room Air Room Air MDM - Abdominal Pain Lab Data 08/27/23 14:20 08/27/23 14:20 Labs: Lab Results 08/27/23 Range/Units 14:20 WBC 8.0 (4.5-11.0) X10^3/uL RBC 5.00 (4.5-5.9) X10^6/uL Hgb 15.5 (13.5-17.5) g/dL Hct 45.0 (41-53) % MCV 90.0 (80-100) fL MCH 30.9 (26-34) PG MCHC 34.4 (30-36) % RDW 13.0 (11.6-14.8) % Plt Count 162 (150-400) X10^3/uL Neut % (Auto) 75.5 H (50-75) % Lymph % (Auto) 13.1 L (25-40) % [place] % (Auto) 9.9 (3-14) % Eos % (Auto) 0.8 L (2-4) % Baso % (Auto) 0.7 (0-2) % Neut # (Auto) 6000 (9217-2153) /uL Lymph # (Auto) 1000 L (3899-2343) /uL [place] # (Auto) 800 (0-900) /uL Eos # (Auto) 100 (0-450) /uL Baso # (Auto) 100 (0-100) /uL PT 16.7 H (9.4-12.5) SECONDS INR 1.5 H (0.9-1.3) Sodium 139 (137-145) mmol/L Potassium 4.1 (3.4-5.1) mmol/L Chloride 104 (98-107) mmol/L Carbon Dioxide 33 H (22-32) mmol/L BUN 13 (9-20) mg/dL Creatinine 0.85 (0.66-1.25) mg/dL Estimated GFR > 60 (>60) mL/min BUN/Creatinine Ratio 15.3 (6-22) Glucose 99 (80-110) mg/dL Calcium 8.8 (8.4-10.2) mg/dL Total Bilirubin 0.5 (0.2-1.3) mg/dL AST 24 (17-59) IU/L ALT 22 (<50) IU/L Alkaline Phosphatase 56 (38-126) U/L Total Protein 6.7 (6.3-8.2) g/dL Albumin 4.1 (3.5-5.0) g/dL Globulin 2.6 (1.7-4.1) g/dL Albumin/Globulin Ratio 1.6 (1.0-2.8) Lipase 161 (23-300) U/L Point of care testing: Urine Dip Bedside Urine Glucose Negative Bedside Urine Bilirubin - Negative Bedside Urine Ketone - Negative Urine Specific [place] 1.020 Bedside Urine Occult Blood - Negative Bedside Urine pH 6.5 Bedside Urine Protein - Negative Bedside Urine Urobilinogen - Negative Bedside Urine Nitrite - Negative Bedside Urine Leukocytes - Negative Esterase Imaging Data CT scan - abdomen/pelvis: Radiologist's Impression: PROCEDURE: CT ABDOMEN PELVIS W CON INDICATIONS: pubic pain TECHNIQUE: After the administration of intravenous contrast, axial sections acquired from the lung bases to the pubic symphysis. Coronal and sagittal reformats were performed. For radiation dose reduction, the following was used: automated exposure control, adjustment of mA and/or kV according to patient size. COMPARISON: None. FINDINGS: Image quality: Diagnostic. Lower Chest: No significant findings. ABDOMEN: Liver: No solid mass. Gallbladder: No radiopaque gallstones or wall thickening. Biliary ducts: No biliary dilation. Pancreas: No ductal dilation. Spleen: Size is within normal limits. Adrenal Glands: No adrenal nodules. Kidneys and Ureters: No hydronephrosis. No solid mass. No complex renal cystic lesion which requires follow up. Bowel and peritoneum: There is moderate colonic wall thickening seen involving the ascending colon and the proximal transverse colon. Milder wall thickening can be seen within the more distal colon. There is a small amount of ascites seen layering within the pelvis. No dilated loops of small bowel are seen. The stomach is decompressed at the time of this study, limiting its evaluation. Ventral Wall: No significant ventral hernia. Abdominal Nodes: No retroperitoneal or mesenteric adenopathy by size criteria. Vessels: Aorta and inferior vena cava are normal in size. Atherosclerotic calcification is noted. PELVIS: Pelvic Organs: Unremarkable. Bladder: No bladder wall thickening, accounting for underdistention. Pelvic Nodes: No enlarged lymph nodes. Miscellaneous: Bilateral fat containing inguinal hernias are seen. Bones: No aggressive osseous abnormality. Age-appropriate bony degenerative changes are seen. IMPRESSION: Moderate proximal colonic wall thickening can be seen. Please correlate with potential infectious and inflammatory causes of colitis. No findings of perforation or abscess can be seen. A mild degree of layering ascites is seen within the pelvis. Bilateral fat containing inguinal hernias are seen. Dictated by: Howard Weston M.D. on 08/27/2023 at 16:10 MDM Narrative Medical decision making narrative: Patient is a 68-year-old male presenting today with suprapubic pain. He has not having any sort of flank pain the pain does not seem to be radiating. Bladder scan at bedside shows 144 mL. Urinalysis has been evaluated without evidence of hematuria or infection. Blood work has been reviewed he has no leukocytosis, no electrolyte abnormality or CRISTOBAL lipase is 161. CT abdomen pelvis does show moderate proximal colonic thickening potential infectious inflammatory causes of colitis Patient is offered pain medication but declines at this time. Differential diagnosis nephrolithiasis pancreatitis UTI, diverticulitis. Patient is afebrile no leukocytosis but does has have evidence of colitis on CT. Discussed with him he may or may not get better with antibiotics. Will write him a prescription for antibiotics he can see how it goes for the next couple of days. Pain medication low fiber diet. Discharge Plan Departure Patient Disposition: Home Clinical Impression: Colitis Instructions: DI for Colitis Activity Restrictions/Additional Instructions: *You have been diagnosed with colitis *What to do: At this time you have area and urine testing that is inflamed. It may get better on its own or you may require antibiotics. I do recommend low-fiber diet while this heals and afterwards please resume high-fiber healthy diet of fruits and vegetables *Continue to take medications as directed Flagyl 500 mg 3 times a day for 7 days Cipro 500 mg twice a day for 7 days [place] 1 tablet every 6 hours if needed for severe pain *Follow up with your primary care provider in 2-3 days or call [phone] *Return to ER if you should have increasing fever pain or any new, worsening or concerning symptoms CONTROLLED SUBSTANCE DISCHARGE (Narcotoic/benzodiazepine/Flexeril/Phenergan) 1. You have been prescribed narcotic medications, it does have acetaminophen/Tylenol/paracetamol in it, DO NOT TAKE MORE THAN 4,00mg in 24 hours of Tylenol. TRAMADOL DOES NOT CONTAIN TYLENOL 2. Please understand that we cannot provide further refills of narcotics, benzodiazepines or controlled substances through the ED and her pain management will need to be through your provider. 3. While on these medications you cannot drive or operate heavy machinery. 4. You cannot sign legal documents or perform any duties such as this. 5. As long as you're taking opiate pain medications he should also be taking a stool softener such as Colace, Dulcolax, MiraLAX or prune juice, to help avoid constipation. Prescriptions: New hydrocodone-acetaminophen 5-325 mg tablet 1 tab PO Q6H PRN (Reason: pain) Qty: 10 0RF metronidazole 500 mg tablet 500 mg PO Q8H 7 Days Qty: 21 0RF ciprofloxacin HCl [Cipro] 500 mg tablet 500 mg PO BID Qty: 14 0RF No Action melatonin 3 mg tablet 3 mg PO BEDTIME PRN (Reason: Insomnia) doxazosin 8 mg tablet 8 mg PO DAILY trazodone 150 mg tablet 150 mg PO BEDTIME lansoprazole [Prevacid] 15 mg capsule,delayed release(DR/EC) 15 mg PO DAILY lisinopril 40 mg tablet 40 mg PO DAILY lidocaine 5 % adhesive patch,medicated 1 patch topical DAILY Qty: 15 3RF Rx Instructions: leave on most painful area for up to 12 hrs valacyclovir 1 gram tablet 1,000 mg PO DAILY Qty: 90 3RF Jatenzo 237 mg capsule 237 mg PO BID finasteride 5 mg tablet 5 mg PO DAILY Eliquis 5 mg tablet 5 mg PO BID Wegovy 2.4 mg/0.75 mL pen injector SUBCUT Patient Comments: [NO ORIGINAL SIG] amlodipine 5 mg tablet 5 mg PO DAILY methocarbamol 500 mg tablet 1,000 mg PO Q8H PRN (Reason: muscle spasm) Qty: 180 1RF alprazolam 1 mg tablet 1 mg PO DAILY PRN (Reason: Anxiety) Patient Comments: TK 1 T PO ONCE QD PRN Vitamin D3 4,000 unit Capsule 4,000 unit PO DAILY Vitamin B-12 1 tab PO DAILY sildenafil 1 dose PO PRN PRN (Reason: Erectile Dysfunction) carvedilol 25 mg tablet 25 mg PO BID Qty: 60 0RF Rx Instructions: must administer with a meal/food Referrals: Frankie Shine ARNP [Primary Care Provider] - Stand Alone Forms: Patient Portal/API
--- NOTE | 2023-08-27 16:18 | DI.CT.S_ITS ---
PROCEDURE: CT ABDOMEN PELVIS W CON INDICATIONS: pubic pain TECHNIQUE: After the administration of intravenous contrast, axial sections acquired from the lung bases to the pubic symphysis. Coronal and sagittal reformats were performed. For radiation dose reduction, the following was used: automated exposure control, adjustment of mA and/or kV according to patient size. COMPARISON: None. FINDINGS: Image quality: Diagnostic. Lower Chest: No significant findings. ABDOMEN: Liver: No solid mass. Gallbladder: No radiopaque gallstones or wall thickening. Biliary ducts: No biliary dilation. Pancreas: No ductal dilation. Spleen: Size is within normal limits. Adrenal Glands: No adrenal nodules. Kidneys and Ureters: No hydronephrosis. No solid mass. No complex renal cystic lesion which requires follow up. Bowel and peritoneum: There is moderate colonic wall thickening seen involving the ascending colon and the proximal transverse colon. Milder wall thickening can be seen within the more distal colon. There is a small amount of ascites seen layering within the pelvis. No dilated loops of small bowel are seen. The stomach is decompressed at the time of this study, limiting its evaluation. Ventral Wall: No significant ventral hernia. Abdominal Nodes: No retroperitoneal or mesenteric adenopathy by size criteria. Vessels: Aorta and inferior vena cava are normal in size. Atherosclerotic calcification is noted. PELVIS: Pelvic Organs: Unremarkable. Bladder: No bladder wall thickening, accounting for underdistention. Pelvic Nodes: No enlarged lymph nodes. Miscellaneous: Bilateral fat containing inguinal hernias are seen. Bones: No aggressive osseous abnormality. Age-appropriate bony degenerative changes are seen. IMPRESSION: Moderate proximal colonic wall thickening can be seen. Please correlate with potential infectious and inflammatory causes of colitis. No findings of perforation or abscess can be seen. A mild degree of layering ascites is seen within the pelvis. Bilateral fat containing inguinal hernias are seen. Dictated by: Howard Weston M.D. on 08/27/2023 at 16:10 Approved by: Howard Weston M.D. on 08/27/2023 at 16:12
[2023-08-27] MEDS: HYDROCODONE/ACET 5/325 PREPACK 1 BOTTLE MISC (18:17)
[2023-08-27 18:23] VITALS: BP 155/78; PULSE 70; RESP 16; O2SAT 99
== END 2023-08-27 18:26 | disposition home or self-care (01) ==
PROVIDERS: Emergency Provider Emergency Medicine; PCP Registered Nurse Diabetes Educator
DX: K52.9 Noninfective gastroenteritis and colitis, unspecified (principal); Z79.01 Long term (current) use of anticoagulants; Z79.899 Other long term (current) drug therapy
CPT/HCPCS: 36415; 51798; 74177; 80053; 81003; 83690; 85025; 85610; 93005; 99284; Q9967

== ENCOUNTER 2023-10-06 10:22 | Day surgery (SDC) | payer MEDICARE, BC, SELFPAY ==
[2023-10-03 13:24] VITALS: BMI 27.9
--- NOTE | 2023-10-06 10:32 | SUR.OPER ---
Supine on padded OR bed, head on pillow, arms padded and tucked at sides, legs uncrossed, safety belt at thigh, tape over blanket over lower legs .
[2023-10-06] MEDS: LACTATED RINGERS 1,000 ML 42 ML IV ×2 (10:34→13:09)
[2023-10-06] MEDS: ACETAMINOPHEN 325 MG TABLET 975 MG PO (10:35)
[2023-10-06] MEDS: OXYMETAZOLINE NASAL SPRAY 30 ML 2 SPRAYS NASAL ×2 (10:36→11:27)
--- NOTE | 2023-10-06 10:54 | PM.PREOP ---
Pre-operative Note Interval Note History & Physical reviewed/Exam performed by Physician: Yes Changes to H&P: No
[2023-10-06 10:55] VITALS: BP 158/85; PULSE 60; RESP 16; TEMP 36.6; O2SAT 99; BMI 27.9
--- NOTE | 2023-10-06 10:55 | P.HP_ITS ---
History of Present Illness History of Present Illness Date Patient Seen: 10/06/23 Time Patient Seen: 10:55 Chief complaint: SDC Narrative: 68-year-old anticoagulated male last seen in clinic 08/22 presents with his for scheduled revision septoplasty and bilateral inferior turbinate reduction as outpatient at [facility]. He stopped his Eliquis as directed 3 days ago, plans on resuming in 3 days. Stopped his Wegovy 1 week ago. He has Xanax per his PCP to use if necessary postoperatively but understands he will not use concurrently with the oxycodone. He continues fullface CPAP and received cardiac clearance 07/18/2023, PCP clearance 07/12/2023. No health changes, no recent cough cold or fever, wishes to proceed. [facility] Medical History Tinnitus Anxiety GERD (gastroesophageal reflux disease) Hearing impaired DVT (deep venous thrombosis) Lumbar spondylosis Other low back pain HSV-2 (herpes simplex virus 2) infection Low testosterone Dyslipidemia Impaired fasting blood sugar HTN (hypertension) Atrial fibrillation Surgical History Hx of colonoscopy Hx of cosmetic surgery (1995) Hx of nasal septoplasty (~2014) H/O cardiac radiofrequency ablation (10/2019) Social History household members: spouse Smoking Status: Former smoker alcohol intake: current Meds Home Medications and Allergies Home Medications Medication Instructions Recorded Confirmed Type doxazosin 8 mg tablet 8 mg PO DAILY 04/21/18 03/28/23 History lansoprazole 15 mg capsule,delayed 15 mg PO DAILY 04/21/18 03/28/23 History release (Prevacid) lisinopril 40 mg tablet 40 mg PO DAILY 04/21/18 03/28/23 History melatonin 3 mg tablet 3 mg PO BEDTIME PRN Insomnia 04/21/18 03/28/23 History trazodone 150 mg tablet 150 mg PO BEDTIME 04/21/18 03/28/23 History Vitamin B-12 1 tab PO DAILY 10/23/18 03/28/23 History alprazolam 1 mg tablet 1 mg PO DAILY PRN Anxiety 10/23/18 10/06/23 History carvedilol 25 mg tablet 25 mg PO BID #60 tabs 10/23/18 10/06/23 Rx cholecalciferol (vitamin D3) 100 4,000 unit PO DAILY 10/23/18 03/28/23 History mcg (4,000 unit) capsule (Vitamin D3) sildenafil 1 dose PO PRN PRN Erectile 10/23/18 03/28/23 History Dysfunction apixaban 5 mg tablet (Eliquis) 5 mg PO BID 11/09/22 10/06/23 History finasteride 5 mg tablet 5 mg PO DAILY 11/09/22 03/28/23 History testosterone undecanoate 237 mg 237 mg PO BID 11/09/22 03/28/23 History capsule (Jatenzo) lidocaine 5 % topical patch 1 patch topical DAILY #15 ea 11/17/22 03/28/23 Rx amlodipine 5 mg tablet 5 mg PO DAILY 12/22/22 10/06/23 History semaglutide (weight loss) 2.4 mg SUBCUT 12/22/22 03/28/23 History mg/0.75 mL subcutaneous pen injector (Erik) methocarbamol 500 mg tablet 1,000 mg (2 x 500 mg) PO Q8H PRN 02/07/23 03/28/23 Rx muscle spasm #180 tabs valacyclovir 1 gram tablet 1,000 mg PO DAILY #90 tabs 04/04/23 Rx ciprofloxacin HCl 500 mg tablet 500 mg PO BID #14 tabs 08/27/23 Rx (Cipro) hydrocodone 5 mg-acetaminophen 325 1 tab PO Q6H PRN pain #10 tabs 08/27/23 Rx mg tablet eplerenone 25 mg tablet 12.5 mg PO DAILY 10/05/23 10/06/23 History Allergies Allergy/AdvReac Type Severity Reaction Status Date / Time hydroxyzine [From Vistaril] AdvReac hyperactivi Verified 10/06/23 10:47 ty Review of Systems Review of Systems Narrative: Negative except as listed in the HPI Exam Narrative Exam Narrative: Well-developed well-nourished, heart regular rate and rhythm without murmur, lungs clear to auscultation bilaterally Assessment & Plan Assessment & Plan narrative: Assessment: Nasal airway obstruction, septal deviation despite history of prior septoplasty, inferior turbinate hypertrophy, ESTEFANY, chronic anticoagulation Plan: Following discussion of the material risks benefits complications and alternatives, the patient elected to proceed.
--- NOTE | 2023-10-06 10:57 | PM.OP.1 ---
Operative Date/Time/Diagnoses Date of procedure: 10/06/23 Time of procedure: 12:57 Pre-op diagnosis: Nasal airway obstruction, septal deviation despite prior septoplasty, inferior turbinate hypertrophy, ESTEFANY, chronic anticoagulation Post-op diagnosis: same (extensive scarring with markedly increased effort of surgery as a result) Procedure & Clinicians Procedure: 1. Septoplasty 2. Bilateral inferior turbinate reduction via intramural cautery 3. Increased difficulty >50% due to extensive scar from prior surgery. Same procedure as scheduled: Yes Indications: 68 Year old with the above diagnoses incompletely managed with medical therapy presents for the above procedure. Following discussion of the material risks benefits complications and alternatives, the patient elected to proceed. Surgeon: Syed Roe Click Yes if Unassisted: Yes Anesthesia Type: General and Local Operative Notes Findings: Extensive scar throughout with irregular cartilage and thickened bone, bilateral flap perforations inferiorly 3cm from the vestibule due to scar and tethered mucosa from prior surgery. Extensive residual obstructive deviated cartilage and bone despite prior surgery, improved at completion. Generalized RIGHT high and anterior deviation, left low deviation, improved. Left large anterior inferior septal spur with atrophic mucosa, right inferior turbinate hypertrophy, left minimal. Effort of surgery >50% beyond primary surgery. Estimated Blood Loss (mL): 75 Procedure in detail: Following identification and confirmation of consent as well as preoperative Afrin nasal spray, the patient was brought to the operating room suite and placed in the supine position. General endotracheal anesthesia was administered. I infiltrated the septum widely bilaterally with 1% lidocaine 1 100,000 epinephrine followed by temporary packing with cotton with Afrin and 4% lidocaine. Following sterile prep and drape, the packing was removed and I performed a right becca-transfixion incision, elevated the right mucoperichondrial and mucoperiosteal flap, very difficult as above due to extensive scarring and irregular tissue. I disarticulated near the bony/cartilaginous junction and elevated the left mucoperiosteal flap, difficult with a few small perforations in addition to the primary perforation as above. Deviated portions of the perpendicular plate of the ethmoid and vomer were eventually resected. The residual quadrilateral cartilage was further straightened by trimming it slightly inferiorly as well as reducing the maxillary crest. A 2 mm strip of cartilage paralleling the residual 1 cm dorsal strut was resected to further straighten the quadrilateral cartilage. The hemitransfixion incision was closed with interrupted 5 0 chromic followed by a running 4 0 plain gut mattress suture to reapproximate the septal flaps. At case completion, Cole air channel silastic splints were placed bilaterally, sutured anteriorly with a single 4 0 nylon. The head of each inferior turbinate had been previously infiltrated with additional local anesthetic and a 25 gauge spinal needle was used to impale the length of the turbinate, with cautery on a setting of 15 activated on slow withdrawal over 2 passes. The turbinates were then outfractured. The procedure completed, sponge and needle counts were correct and the patient was extubated in the operating room and taken to recovery room in stable condition without known complication. Postoperative care: Nasal saline every hour while awake, Vaseline or Polysporin to the nostrils at all times, begin irrigations t.i.d. beginning pod 1. Humidifier at the bedside blowing on the face. Tylenol alternating with Advil for pain control, oxycodone if necessary for breakthrough pain. Complications: none Post-operative Condition: stable Disposition: same day surgery Plan for aftercare: Nasal saline every hour while awake, begin irrigations t.i.d. tomorrow if desired. Polysporin to the nostrils at all times, Tylenol alternating with Advil for pain control, oxycodone for breakthrough pain. Elevate head of bed, no nose blowing, no straining for 2 weeks. Ice directly under the nose on the upper lip has tolerated 24-48 hours at a minimum. Follow-up in 1 week for nasal splint removal, although may consider an extended period due to the high risk of septal perforation.
[2023-10-06] MEDS: LIDOCAINE 1% W/EPI 20 ML INJ (11:26)
[2023-10-06] MEDS: LIDOCAINE 4% SOLN 50 ML TOP (11:27)
[2023-10-06] MEDS: BACITRACIN OINT 0.9 GM PCKT 1 APPLIC TOP (11:28)
[2023-10-06 13:02] VITALS: BP 116/68; PULSE 75; RESP 15; TEMP 36.2; O2SAT 96
[2023-10-06 13:07] VITALS: BP 129/81; PULSE 76; RESP 14; O2SAT 96
[2023-10-06 13:11] VITALS: BP 129/81; PULSE 73; RESP 14; O2SAT 97
[2023-10-06] MEDS: OXYCODONE IR 5 MG TABLET PO (13:13)
[2023-10-06 13:14] VITALS: BP 133/81; PULSE 73; RESP 15; O2SAT 97
== END 2023-10-06 14:05 | disposition home or self-care (01) ==
PROVIDERS: PCP Registered Nurse Diabetes Educator; Referring Provider Otolaryngology; Visit Provider Otolaryngology
PROC: (CPT 30520; principal; 2023-10-06 11:45)
DX: J34.2 Deviated nasal septum (principal); J34.3 Hypertrophy of nasal turbinates; J34.89 Other specified disorders of nose and nasal sinuses
CPT/HCPCS: 30520; 30802; J1100; J2250; J2405; J2704; J3010

== ENCOUNTER → 2024-02-18 15:30 | Outpatient (CLI) | payer MEDICARE, BC, SELFPAY | PROVIDERS: PCP Registered Nurse Diabetes Educator; Referring Provider Nurse Practitioner Family; Visit Provider Nurse Practitioner Family | DX: L03.012 Cellulitis of left finger (principal) | CPT/HCPCS: 87070; 87075; 87077; 87147; 87186; 87205 ==

== ENCOUNTER → 2024-09-18 14:58 | Outpatient (CLI) | payer MEDICARE, BC, SELFPAY ==
--- NOTE | 2024-09-18 15:01 | DI.RAD.S_ITS ---
PROCEDURE: XR HAND LT MIN 3V INDICATIONS: eval L hand pain ulnar aspect and 5th finger s/p trauma TECHNIQUE: 3 views of the hand(s) acquired. COMPARISON: None. FINDINGS AND IMPRESSION: No displaced fracture, however there is mildly sclerotic appearance of the mid 5th metacarpal. Correlate with point tenderness for nondisplaced injury. No dislocation. No suspicious soft tissue calcifications. If there is high concern for occult injury, consider repeat radiography or cross-sectional imaging. Dictated by: Edgar Charles M.D. on 09/18/2024 at 16:54 Approved by: Edgar Charles M.D. on 09/18/2024 at 16:56
[2024-09-18 15:31] LABS: Add Manual Diff / Slide Review NO; Basophils Absolute Auto 100 /uL (0-100); Basophils Percent Auto 0.7 % (0-2); Eosinophils Absolute Auto 100 /uL (0-450); Eosinophils Percent Auto 1.8 % (2-4); Hematocrit 44.4 % (41-53); Hemoglobin 15.3 g/dL (13.5-17.5); Lymphocytes Absolute Auto 1600 /uL (1100-4500); Lymphocytes Percent Auto 20.8 % (25-40); Mean Corpuscular HGB Conc 34.4 % (30-36); Mean Corpuscular Hemoglobin 31.5 PG (26-34); Mean Corpuscular Volume 91.5 fL (80-100); Monocytes Absolute Auto 800 /uL (0-900); Neutrophils Absolute Auto 5100 /uL (1500-7000); Neutrophils Percent Auto 66.7 % (50-75); Platelet Count 154 X10^3/uL (150-400); Red Blood Cell Count 4.85 X10^6/uL (4.5-5.9); White Blood Cell Count 7.7 X10^3/uL (4.5-11.0)
== END ==
LOC: LAB 14:59 → RAD 15:00
PROVIDERS: PCP Registered Nurse Diabetes Educator; Referring Provider Registered Nurse Diabetes Educator; Visit Provider Registered Nurse Diabetes Educator
DX: M79.642 Pain in left hand (principal); V19.9XXA Pedal cyclist (driver) (passenger) injured in unspecified traffic accident, initial encounter
CPT/HCPCS: 36415; 73130; 85025

== ENCOUNTER → 2024-09-19 07:44 | Outpatient (CLI) | payer MEDICARE, BC, SELFPAY ==
--- NOTE | 2024-09-19 07:49 | DI.CT.S_ITS ---
PROCEDURE: CT CHEST ABD PEL WO CON INDICATIONS: fall TECHNIQUE: After the administration of oral contrast, 5 mm thick sections acquired from the lung apices to the symphysis pubis. 5 mm thick coronal and sagittal reformats acquired, with additional 7 mm coronal MIP reformats through the lungs. For radiation dose reduction, the following was used: automated exposure control, adjustment of mA and/or kV according to patient size. COMPARISON: [facility], CT, CT ABDOMEN PELVIS W CON, 08/27/2023, 16:38. FINDINGS: Image quality: Diagnostic. CHEST: Lower Neck: No enlarged lymph nodes. Thyroid: No thyroid nodules which require sonographic follow up, per consensus guidelines. Axillae: No enlarged lymph nodes. Chest Wall: Unremarkable. Bones: There are minimally displaced fractures of the right lateral 4th, 5th, 6th ribs . Fractures are located in 1 location. Lungs and Pleura: No pneumothorax or pleural effusions. Atelectasis of the right middle lobe . Stable 3 mm solid nodule in the left lower lobe compared with 2023, statistically benign. Heart: Heart size is normal. No pericardial effusion. Two vessel coronary calcifications. Thoracic Vessels: The aorta and pulmonary arteries demonstrate normal size. Mediastinum and Jania: No enlarged lymph nodes. Esophagus: No wall thickening. No hiatal hernia. ABDOMEN: Liver: No solid mass. Gallbladder: No radiopaque gallstones or wall thickening. Biliary ducts: No biliary dilation. Pancreas: No ductal dilation. Spleen: Size is within normal limits. Adrenal Glands: No adrenal nodules. Kidneys and Ureters: No hydronephrosis. No solid mass. No complex renal cystic lesion which requires follow up. Stable hemorrhagic cyst of the right kidney. Stomach and Bowel: Normal colonic caliber, without significant wall thickening. Peritoneum: No abnormal intraperitoneal fluid. No free air. Ventral Wall: No hernia. Abdominal Nodes: No retroperitoneal or mesenteric adenopathy by size criteria. Vessels: Aorta and inferior vena cava are normal in size. PELVIS: Pelvic Organs: Unremarkable. Bladder: Unremarkable. Pelvic Nodes: No enlarged lymph nodes. Miscellaneous: Small indirect inguinal hernias containing fat. Bones: No aggressive osseous abnormality. Degenerative disc disease of the lumbar spine. IMPRESSION: Minimally displaced right lateral 4th through 6th rib fractures, without flail chest pathology. No pneumothorax. Marked coronary artery calcifications for age. Correlate with risk factors and advise counseling. Small indirect inguinal hernias containing fat. Dictated by: Mark Burch M.D. on 09/19/2024 at 13:18 Approved by: Makr Burch M.D. on 09/19/2024 at 13:32
== END ==
PROVIDERS: PCP Registered Nurse Diabetes Educator; Referring Provider Registered Nurse Diabetes Educator; Visit Provider Registered Nurse Diabetes Educator
DX: R07.9 Chest pain, unspecified (principal); R10.9 Unspecified abdominal pain; S22.41XA Multiple fractures of ribs, right side, initial encounter for closed fracture; I25.10 Atherosclerotic heart disease of native coronary artery without angina pectoris; K40.20 Bilateral inguinal hernia, without obstruction or gangrene, not specified as recurrent
CPT/HCPCS: 71250; 74176

== ENCOUNTER → 2024-09-19 11:18 | Outpatient (CLI) | payer MEDICARE, BC, SELFPAY ==
--- NOTE | 2024-09-19 11:21 | DI.CT.S_ITS ---
PROCEDURE: CT HAND LEFT WITHOUT CON INDICATIONS: further eval sclerotic appearance mid 5th metacarpal, R/O fx TECHNIQUE: Noncontrast 1 mm axial sections acquired through the carpal bones, with coronal and sagittal reformats. COMPARISON: [facility], CR, XR HAND LT MIN 3V, 09/18/2024, 14:08. FINDINGS: Image quality: Excellent. Bones: Alignment of left hand is anatomic. No acute fracture or dislocation. Mild sclerotic density traversing mid shaft of 5th metacarpal bone and likely represent old healed injury. No acute fracture or dislocation is seen. Benign-appearing subcortical cystic area is seen in mid 1st metacarpal shaft with mild adjacent cortical thinning. No periosteal reaction or or cortical disruption. No abnormal periosteal reaction. Mild osteoarthritic changes are noted throughout left hand and wrist joints. No evidence of avascular necrosis. Soft tissues: There is no abnormal soft tissue calcifications. No soft tissue mass or drainable fluid collection. No gross full-thickness extensor or flexor tendon rupture. IMPRESSION: 1. No acute left hand fracture or dislocation. 2. Likely intraosseous cyst formation involving mid shaft of 1st metacarpal bone. Ill-defined linear sclerotic density within mid shaft of 5th metacarpal bone likely represent sequelae of old healed injury. No suspicious intraosseous lesion. [id number] left hand and wrist joint osteoarthritis. 3. No gross soft tissue abnormalities. Dictated by: Deon Ramachandran M.D. on 09/19/2024 at 12:03 Approved by: Deon Ramachandran M.D. on 09/19/2024 at 12:16
== END ==
PROVIDERS: PCP Registered Nurse Diabetes Educator; Referring Provider Registered Nurse Diabetes Educator; Visit Provider Registered Nurse Diabetes Educator
DX: M79.642 Pain in left hand (principal); V19.9XXA Pedal cyclist (driver) (passenger) injured in unspecified traffic accident, initial encounter; S69.92XA Unspecified injury of left wrist, hand and finger(s), initial encounter; R07.9 Chest pain, unspecified; R10.9 Unspecified abdominal pain; I25.10 Atherosclerotic heart disease of native coronary artery without angina pectoris; K40.20 Bilateral inguinal hernia, without obstruction or gangrene, not specified as recurrent; S22.41XA Multiple fractures of ribs, right side, initial encounter for closed fracture; M19.042 Primary osteoarthritis, left hand; R93.6 Abnormal findings on diagnostic imaging of limbs
CPT/HCPCS: 71250; 73200; 74176

== ENCOUNTER 2025-01-04 11:49 | Emergency (ER) | payer MEDICARE, BC, SELFPAY ==
[2025-01-04 11:56] VITALS: BP 180/89; PULSE 65; RESP 14; TEMP 36.1; O2SAT 99; BMI 26.3
[2025-01-04 12:34] LABS: Add Manual Diff / Slide Review NO; Hematocrit 44.6 % (41-53); Hemoglobin 15.8 g/dL (13.5-17.5); Lymphocytes Absolute Auto 1400 /uL (1100-4500); Mean Corpuscular HGB Conc 35.3 % (30-36); Mean Corpuscular Hemoglobin 31.5 PG (26-34); Mean Corpuscular Volume 89.2 fL (80-100); Platelet Count 178 X10^3/uL (150-400)
[2025-01-04 12:49] LABS: Culture Indicated Urine Cult Not Indicated
[2025-01-04 12:51] LABS: Alanine Aminotransferase 57 IU/L (<50); Albumin 4.2 g/dL (3.5-5.0); Albumin Globulin Ratio 1.4 (1.0-2.8); Alkaline Phosphatase 58 U/L (38-126); Blood Urea Nitrogen 17 mg/dL (9-20); Calcium 9.2 mg/dL (8.4-10.2); Carbon Dioxide 30 mmol/L (22-32); Chloride 103 mmol/L (98-107); Estimated Glomerular Filt Rate > 60 mL/min (>60); Globulin 3.0 g/dL (1.7-4.1); Glucose 100 mg/dL (70-99); HEMOLYSIS 15 (0-50); Potassium 4.4 mmol/L (3.4-5.1); Sodium 140 mmol/L (137-145); Total Protein 7.2 g/dL (6.3-8.2)
--- NOTE | 2025-01-04 13:03 | ED_ITS ---
<Statement entered by Tom Diallo MD - 01/09/25 18:00> I was present in the department and available for consultation at the time the patient was seen HPI - Male Genitourinary General Chief complaint: Urogenital-Male Stated complaint: Urinary Symptoms, Nausea, Abdominal Pain, Headache Time Seen by Provider: 01/04/25 12:04 Source: patient Mode of arrival: Ambulatory History of Present Illness HPI Narrative: This is a 69-year-old male with a history of prostatitis, semaglutide weight loss medicationx 3 yrs, lumbar spondylosis, hypertension, MSM, HSV 2, and atrial fibrillation presenting with concern for mild pelvic pressure/tightness sensation in the bladder area low middle, and urinary frequency for 3-4 weeks. Patient also states a few weeks ago he had fevers for a few days with no specific other symptoms--no abdominal pain, nausea or vomiting at that time. In general he has been feeling chilled for the last few weeks despite the warm weather. He also states he has generally been feeling ?unwell? and ?not right?. He also describes a few episodes of feeling slightly dizzy or lightheaded he does not think this is associated with standing up from sitting or any specific activity. Additionally he mentions he has been feeling nauseated mildly in the mornings most mornings for a few weeks and he has had some intermittent loose stools/diarrhea for the past 1-4 weeks he states this has not been severe or consistent. He has had no new medication changes except that he did start a statin 2 days ago after seeing his PCP. He sees a urologist and also has a marketing summer intern. He was scheduled to have a colonoscopy January 31. His next Urology appointment with his new urologist is January 30. He is open to testing for STIs today. He states he does take doxycycline PEP as prescribed on occasion when he has potentially risky sexual encounters. He states he has not taken this for about 2 months. He denies flank pain, abdominal pain, blood in his urine or stool, mucus in his urine or stool, sore throat, flank pain, loss of appetite or other symptoms. He does believe he has a known kidney stone that has not previously been a problem. He is due for colonoscopy February 01. Related Data Home Medications ?Medication ?Instructions ?Recorded ?Confirmed doxazosin 8 mg tablet 8 mg PO DAILY 04/21/1811/20 lisinopril 40 mg tablet 40 mg PO DAILY 04/21/1810/24 melatonin 3 mg tablet 3 mg PO BEDTIME PRN Insomnia 04/21/18 11/20/24 trazodone 150 mg tablet 150 mg PO BEDTIME 04/21/18 0 11/20/24 Vitamin B-12 1 tab PO DAILY 10/23/1810/24 alprazolam 1 mg tablet 1 mg PO DAILY PRN Anxiety 11/20/24 cholecalciferol (vitamin D3) 100 4,000 unit PO DAILY 0 10/23/18 11/20/24 mcg (4,000 unit) capsule (Vitamin D3) apixaban 5 mg tablet (Eliquis) 5 mg PO BID 11/09/22 finasteride 5 mg tablet 5 mg PO DAILY 11/09/2211/20 testosterone undecanoate 237 mg 237 mg PO BID 11/09/22 11/20/24 capsule (Jatenzo) amlodipine 5 mg tablet 5 mg PO DAILY 12/22/2211/20 semaglutide (weight loss) 2.4 mg SUBCUT 12/22/2211/20 mg/0.75 mL subcutaneous pen injector (Erik) tadalafil 20 mg tablet 20 mg PO DAILY 02/18/2410/24 eplerenone 25 mg tablet 12.5 mg PO DAILY 11/20/24 sildenafil 50 mg tablet 50 mg PO DAILY PRN 11/20/24 11/20/24 Previous Rx's ?Medication ?Instructions ?Recorded carvedilol 25 mg tablet 25 mg PO BID #60 tabs methocarbamol 500 mg tablet 1,000 mg (2 x 500 mg) PO Q 8H PRN 02/07/23 muscle spasm #180 tabs doxycycline hyclate 100 mg capsule 100 mg PO BID #14 c aps 02/18/24 mupirocin 2 % topical ointment 1 applic topical TID #2 2 grams 02/18/24 Semaglutide 2.4mg/ml See Rx Instructions .Route 0 05/24/24 Held on 05/24/24. .COMPLEX #10 mL Instructions: Sending e-rx per Brooke request semaglutide (weight loss) 2.4 2.4 mg (0.75 mL) SUBCUT QWEEK #10 05/24/24 mg/0.75 mL subcutaneous pen mL injector hydrocodone 5 mg-acetaminophen 325 1 tab PO Q6H PRN pa in (scale score 10/08/24 mg tablet 7-10) #30 tabs sodium,potassium,mag sulfates 17.5 See Rx Instructions PO .COMPLEX 12/31/24 gram-3.13 gram-1.6 gram oral soln #354 mL (Suprep Bowel Prep Kit) cefpodoxime 200 mg tablet 200 mg PO Q12H 7 days #14 ta bs 01/04/25 doxycycline hyclate 100 mg capsule 100 mg PO BID 7 day s #14 caps 01/04/25 ondansetron 4 mg disintegrating 4 mg PO Q8H PRN nausea and 01/04/25 tablet vomiting 10 days #30 tabs Allergies Allergy/AdvReac Type Severity Reaction Status Date / Time hydroxyzine (From Vistaril) AdvReac hyperactivi Verified 01/04/25 11:56 ty Review of Systems Review of Systems Narrative: See HPI Patient History Medical History Family history of colon cancer in father ESTEFANY (obstructive sleep apnea) Tinnitus Anxiety GERD (gastroesophageal reflux disease) Hearing impaired DVT (deep venous thrombosis) Lumbar spondylosis Other low back pain HSV-2 (herpes simplex virus 2) infection Low testosterone Dyslipidemia Impaired fasting blood sugar HTN (hypertension) Atrial fibrillation Surgical History Hx of colonoscopy Hx of cosmetic surgery (1995) Hx of nasal septoplasty (~2014) H/O cardiac radiofrequency ablation (10/2019) Social History household members: spouse Smoking Status: Unknown if ever smoked alcohol intake: current Smoking Status: Unknown if ever smoked alcohol intake frequency: 0-2 drinks per day Exam Narrative Exam Narrative: GENERAL: [69] year old patient appears stated age. Well-developed patient, in mild distress. Generally well-appearing, nontoxic HEAD: Atraumatic. Normocephalic. EYES: Pupils equal round and reactive. Extraocular motions intact. No scleral icterus. No injection or drainage. ENT: Nose without bleeding, purulent drainage. Throat without erythema, tonsillar hypertrophy or exudate. Airway patent. NECK: Trachea midline. Non tender CARDIOVASCULAR: Regular rate and rhythm without murmurs, gallops, or rubs. RESPIRATORY: Clear to auscultation. Breath sounds equal bilaterally. No wheezes, rales, or rhonchi. GASTROINTESTINAL: Abdomen soft, there is very mild suprapubic tenderness otherwise non-tender, nondistended, no CVA tenderness. Bladder scan 45mL post void. EXTREMITIES: No edema or joint tenderness. BACK: Nontender without deformity or crepitance. No flank tenderness. NEURO: AOx3. SKIN: No rash or erythema of visible areas Initial Vital Signs Initial Vital Signs: Vital Signs Temperature 97.0 F L 01/04/25 11:56 Pulse Rate 65 01/04/25 11:56 Respiratory Rate 14 01/04/25 11:56 Blood Pressure 180/89 H 01/04/25 11:56 Pulse Oximetry 99 01/04/25 11:56 Oxygen Delivery Method Room Air 01/04/25 11:56 Course Orders Ordered: ED Orders 01/04/25 11:20 CBC Auto Diff [Complete Blood Count AUTO DIFF] Stat CMP [Comprehensive Metabolic Panel] Stat ESR [Erythrocyte Sedimentation Rate] Stat 01/04/25 12:05 Ur Mycoplasma genitalium,ADRIANNA Stat Urine Culture Stat Urine Microscopic Stat 01/04/25 12:36 Blood Culture Stat 01/04/25 13:15 Chlamydia Gonorrhea PCR -URINE Stat Discontinued Medications Ondansetron HCl (Ondansetron 4 Mg/2 Ml Inj) 4 mg IV NOW PRN PRN Reason: Nausea And Vomiting Ondansetron HCl (Ondansetron 4 Mg Odt) 4 mg PO NOW PRN PRN Reason: Nausea And Vomiting Vital Signs Vital signs: Vital Signs - 8 hr 01/04/25 11:56 01/04/25 16:00 Temperature 97.0 F L Pulse Rate 65 61 Respiratory Rate 14 15 Blood Pressure 180/89 H 169/80 H Pulse Oximetry 99 100 Oxygen Delivery Method Room Air Room Air MDM - Male Genitourinary Differential Diagnosis Differential diagnosis: Likely urinary tract infection and other (nausea, less likely prostatitis, STI, prostate hypertrophy, viral illness) Medical Records Attestation: I reviewed the patient's medical records. Lab Data Attestation: I reviewed the patient's lab results. 01/04/25 11:20 01/04/25 11:20 Labs: Lab Results 01/04/25 01/04/25 01/04/25 Range/Units 11:20 12:05 13:15 WBC 6.4 (4.5-11.0) X10^3/uL RBC 5.00 (4.5-5.9) X10^6/uL Hgb 15.8 (13.5-17.5) g/dL Hct 44.6 (41-53) % MCV 89.2 (80-100) fL MCH 31.5 (26-34) PG MCHC 35.3 (30-36) % RDW 13.3 (11.6-14.8) % Plt Count 178 (150-400) X10^3/uL Neut % (Auto) 69.4 (50-75) % Lymph % (Auto) 22.0 L (25-40) % [place] % (Auto) 7.1 (3-14) % Eos % (Auto) 1.1 L (2-4) % Baso % (Auto) 0.4 (0-2) % Neut # (Auto) 4400 (7116-6275) /uL Lymph # (Auto) 1400 (6298-2984) /uL [place] # (Auto) 500 (0-900) /uL Eos # (Auto) 100 (0-450) /uL Baso # (Auto) 0 (0-100) /uL ESR 4 (0-15) MM/HR Sodium 140 (137-145) mmol/L Potassium 4.4 (3.4-5.1) mmol/L Chloride 103 (98-107) mmol/L Carbon Dioxide 30 (22-32) mmol/L BUN 17 (9-20) mg/dL Creatinine 0.87 (0.66-1.25) mg/dL Estimated GFR > 60 (>60) mL/min BUN/Creatinine Ratio 19.5 (6-22) Glucose 100 H (70-99) mg/dL Calcium 9.2 (8.4-10.2) mg/dL Total Bilirubin 0.8 (0.2-1.3) mg/dL AST 43 (17-59) IU/L ALT 57 H (<50) IU/L Alkaline Phosphatase 58 (38-126) U/L Total Protein 7.2 (6.3-8.2) g/dL Albumin 4.2 (3.5-5.0) g/dL Globulin 3.0 (1.7-4.1) g/dL Albumin/Globulin Ratio 1.4 (1.0-2.8) Urine RBC None seen (0-5/HPF) Urine WBC 0-1/hpf (0-5/HPF) Ur Squamous Epith Cells 0-1 /hpf (0-5/HPF) Urine Bacteria None seen (None) Ur Culture Indicated? Cult not indicated Vol Urine Centrifuged 10ml (spun) Ur Chlamydia DNA (PCR) Not detected N gonorrhoeae DNA (PCR) Not detected Urine Dip Bedside Urine Glucose Negative Bedside Urine Bilirubin - Negative Bedside Urine Ketone - Negative Urine Specific [place] 1.020 Bedside Urine Occult Blood - Negative Bedside Urine pH 6.0 Bedside Urine Protein +/- 15 Bedside Urine Urobilinogen +/- 1mg Bedside Urine Nitrite - Negative Bedside Urine Leukocytes - Negative Esterase MDM Narrative Medical decision making narrative: This is a 69-year-old male presenting with concern for urinary frequency urgency and cloudy urine as well as feeling generally unwell for 3-4 weeks with some mild persistent nausea and some intermittent loose stools. Patient is MSM with a history of prostatitis. CBC returns unremarkable today, CMP also unremarkable, urine dip does not suggest infection. Microscopic obtained. Urine also sent for culture. Testing for Gonorrhea, Chlamydia, and Mycoplasma genitalium urine lab. Given patient's history somewhat suspicious for occult kidney infection or prostatitis. We discussed obtaining imaging however this is of low utility for prostatitis. Review the patient's previous CT scan from spring 2024 at which time he came in for rib pain and was diagnosed with rib fractures. On that CT it was noted that he had small direct fat containing inguinal hernias and a stable hemorrhagic cyst of the right kidney. No other abnormalities were noted. Today he does have report of intermittent loose stools for the past 3-4 weeks. Given this combined with his nausea some concern for viral versus intra-abdominal pathology such as CA. he has a urology appointment in 3 weeks' time and also has an appointment for his next colonoscopy in 3 weeks' time. Given this and he is nontender on exam with the exception mild suprapubic tenderness after discussion with the patient imaging was not obtained. G&C retuen negative. Ultimately patient was discharged with plan for close follow up with urologist and PCP, maintain his appointment for colonoscopy. Prescription for cefpodoxime as well as doxycycline patient advised to stop taking his PPI while taking this cefpodoxime. He is comfortable with this and feels his GERD symptoms are not severe enough that this will be a problem. Urine culture and mycoplasma genitalium labs pending at time of discharge. Return precautions provided, follow-up plan discussed, all questions answered. Discharge Plan Departure Patient Disposition: Home Clinical Impression: Increased urinary frequency, Malaise and fatigue, Nausea Activity Restrictions/Additional Instructions: *You have been diagnosed with [no specific diagnosis, urinary frequency, fatigue/malaise and nausea] *What to do: *Please continue to take your regular medications as directed. [ 1] New medication prescriptions sent to your pharmacy: [ Cefpodoxime, Doxycycline, Zofran] [ ] New medication written as a paper prescription [ ] No new medications given *Please follow up with your primary care provider in 2-3 days, call for an appointment. Let them know you were seen in the Emergency Department and that we ask that you be seen in follow up. We will electronically transmit a record of today's note if your PCP is in our system. I have prescribed cefpodoxime medication which should be effective for UTI and likely prostate involvement. However it was important that you stop taking your Prevacid or any PPI medication for the duration that you are taking this antibiotic as this antibiotic is much less effective in the setting of taking medications like Prevacid. Once you complete the cefpodoxime antibiotic it was fine to resume your Prevacid. After discussion with you I also did prescribe a course of doxycycline due to your potential risk factors and as this has different coverage than the cefpodoxime antibiotic. Your labs were generally looking good today. Your urine culture is still pending. Also pending is a urine lab to evaluate for mycoplasma genitalium which could potentially be causing your symptoms. We did a bladder scan today which showed a small amount of retained urine that is not of concern given the low volume retained. Given your generalized symptoms for 3-4 weeks as well as your persistent urinary frequency I do think it is important you follow up closely with your urologist. We did not do imaging of your abdomen/pelvis today after discussion. I did prescribe a nausea medication for you as you has been dealing with some nausea in the mornings recently. As you have mentioned a change to your stools with occasional looser stools of late definitely talk to your PCP about this as well and I know your scheduled for a colonoscopy in about 3 weeks' time and would advise you to mention this to your provider there as well. You are scheduled to see your urologist in about 3 weeks given your current recent symptoms with increased urination would recommend you try to get into be seen sooner. If you do develop worsening symptoms new symptoms or have persistent symptoms that are unimproved please make sure you follow up either in the emergency department or with your PCP/urologist depending on nature/severity of your symptoms. After evaluation today we did not find a definite specific cause for your symptoms, if you are feeling improved with the antibiotics after about 5 days this may suggest possibly urinary tract/kidney or prostate involvement as potential cause of your recent symptoms. *If you do not have a primary care provider please contact the [facility] Resource line at [phone]. They will ask some questions about your medical history and help get you set up with a doctor in the community. *Return to Emergency Department if you should have any new, worsening or concerning symptoms, such as [fever greater than 101 F, shaking chills, worsening pain, persistent vomiting or other bothersome symptoms] Prescriptions: New cefpodoxime 200 mg tablet 200 mg PO Q12H 7 Days Qty: 14 0RF Rx Instructions: must administer with a meal/food ondansetron 4 mg tablet,disintegrating 4 mg PO Q8H PRN (Reason: nausea and vomiting) 10 Days Qty: 30 0RF doxycycline hyclate 100 mg capsule 100 mg PO BID 7 Days Qty: 14 0RF Discontinued lansoprazole [Prevacid] 15 mg capsule,delayed release(DR/EC) 15 mg PO DAILY No Action tadalafil 20 mg tablet 20 mg PO DAILY doxycycline hyclate 100 mg capsule 100 mg PO BID Qty: 14 0RF mupirocin 2 % ointment 1 applic topical TID Qty: 22 0RF melatonin 3 mg tablet 3 mg PO BEDTIME PRN (Reason: Insomnia) doxazosin 8 mg tablet 8 mg PO DAILY trazodone 150 mg tablet 150 mg PO BEDTIME lisinopril 40 mg tablet 40 mg PO DAILY Semaglutide 2.4mg/ml See Rx Instructions .ROUTE .COMPLEX Qty: 10 2RF Rx Instructions: 2.4 mg SQ weekly. OK to compound. Please distribute 2x5ml semaglutide (weight loss) 2.4 mg/0.75 mL pen injector 2.4 mg SUBCUT QWEEK Qty: 10 2RF Rx Instructions: 2.4 mg SQ weekly. hydrocodone-acetaminophen 5-325 mg tablet 1 tab PO Q6H PRN (Reason: pain (scale score 7-10)) Qty: 30 0RF sodium,potassium,mag sulfates [Suprep Bowel Prep Kit] 17.5-3.13-1.6 gram recon soln See Rx Instructions PO .COMPLEX Qty: 354 0RF Rx Instructions: As directed by Provider Jatenzo 237 mg capsule 237 mg PO BID finasteride 5 mg tablet 5 mg PO DAILY Eliquis 5 mg tablet 5 mg PO BID Wegov[place] 2.4 mg/0.75 mL pen injector SUBCUT Patient Comments: [NO ORIGINAL SIG] amlodipine 5 mg tablet 5 mg PO DAILY methocarbamol 500 mg tablet 1,000 mg PO Q8H PRN (Reason: muscle spasm) Qty: 180 1RF sildenafil 50 mg tablet 50 mg PO DAILY PRN eplerenone 25 mg tablet 12.5 mg PO DAILY alprazolam 1 mg tablet 1 mg PO DAILY PRN (Reason: Anxiety) Patient Comments: TK 1 T PO ONCE QD PRN Vitamin D3 4,000 unit Capsule 4,000 unit PO DAILY Vitamin B-12 1 tab PO DAILY carvedilol 25 mg tablet 25 mg PO BID Qty: 60 0RF Rx Instructions: must administer with a meal/food Referrals: Frankie Shine ARNP [Primary Care Provider, Medical] Stand Alone Forms: Patient Portal/API
[2025-01-04 15:05] LABS: Urine N gonorrhoeae NOT DETECTED
[2025-01-04 15:14] LABS: Urine Chlamydia NOT DETECTED
[2025-01-04 16:00] VITALS: BP 169/80; PULSE 61; RESP 15; O2SAT 100
== END 2025-01-04 16:02 | disposition home or self-care (01) ==
PROVIDERS: Emergency Provider Student in an Organized Health Care Education/Training Program; PCP Registered Nurse Diabetes Educator
DX: R35.0 Frequency of micturition (principal); R11.0 Nausea; R53.83 Other fatigue; R53.81 Other malaise
CPT/HCPCS: 36415; 51798; 80053; 81003; 81015; 85025; 85651; 87040; 87086; 87491; 87591; 87798; 99283

== ENCOUNTER → 2025-01-15 14:35 | Outpatient (CLI) | payer MEDICARE, BC, SELFPAY ==
[2025-01-15 14:53] LABS: Appearance Urine UA CLOUDY; Bilirubin Urine UA NEGATIVE (NEGATIVE); Color Urine UA YELLOW; Glucose Urine UA NEGATIVE (Negative); Ketones Urine UA NEGATIVE (NEGATIVE); Leukocyte Esterase Urine UA NEGATIVE (NEGATIVE); Nitrite Urine UA NEGATIVE (Negative); Occult Blood Urine UA NEGATIVE (Negative); Protein Urine UA NEGATIVE (Negative); Specific Gravity Urine UA 1.010 (1.000-1.035); Urobilinogen Urine UA 2.0 E.U./dL (0.2); pH Urine UA 7.5 (4.5-8.0)
[2025-01-15 15:09] LABS: Culture Indicated Urine Cult Not Indicated
== END ==
PROVIDERS: PCP Registered Nurse Diabetes Educator; Visit Provider Family Medicine
DX: R35.0 Frequency of micturition (principal)
CPT/HCPCS: 81001

== ENCOUNTER 2025-02-01 09:46 | Day surgery (SDC) | payer MEDICARE, BC, SELFPAY ==
--- NOTE | 2025-01-31 19:51 | EKG_ITS ---
[facility] [id number] [place] [id number] Test Date: 2025-02-01 Pat Name: Jed Blunt Department: Room: Gender: Male Maintainer Operator: Charla STOREY : 1955 Requested By: Order Number: [id number] Reading MD: Hever Collins Measurements Intervals [place] Rate: 69 P: -20 NC: 230 QRS: 14 QRSD: 102 T: 14 QT: 420 QTc: 450 Interpretive Statements Sinus rhythm with 1st degree AV block with premature atrial complexes Incomplete right bundle branch block Electronically Signed On 02-01-2025 18:46:54 PDT by Hever Collins
--- NOTE | 2025-02-01 | PATH_ITS ---
[facility] Accession Number: [id number] No. of containers..05 Tissue . 01 Material submitted: . PART A: colon - CECAL POLYP PART B: colon - COLON, ASCENDING POLYP PART C: colon - COLON, TRANSVERSE POLYPS PART D: colon - COLON, DESCENDING POLYP PART E: colon - COLON, SIGMOID POLYP . 01 Diagnosis: A: CECUM, POLYPECTOMY: Tubular adenoma. - B: ASCENDING COLON, POLYPECTOMY: Tubular adenoma. - C: TRANSVERSE COLON, POLYPECTOMIES: Tubular adenoma. - D: DESENDING COLON, POLYPECTOMY: Tubular adenoma. - E: SIGMOID COLON, POLYPECTOMY: Tubulovillous adenoma. [facility] 02/12/2025 1107 Local . 01 Electronically signed: . Vincent Silverman MD, Pathologist NPI- [id number] . 01 Gross description: . A. Received in formalin with two identifiers and cecal polyp, is a soft wagner polyp measuring 0.5 cm in greatest dimension. Entirely submitted in cassette A1. B. Received in formalin with two identifiers and ascending colon polyp, is a single soft wagner tissue fragment measuring 0.3 cm in greatest dimension. Entirely submited in cassete B1. C. Received in formalin with two identifiers and transverse colon polyp, are two soft wagner tissue fragments ranging from 0.4 to 0.9 cm in greatest dimension. Entirely submitted in cassette C1. D. Received in formalin with two identifiers and descending colon polyp, are three soft wagner tissue fragments ranging from 0.4 to 0.7 cm in greatest dimension. Entirely submitted in cassete D1. E. Received in formalin with two identifiers and sigmoid colon polyp, are two soft wagner polyps ranging from 0.4 to 1.2 cm in greatest dimension. The largest polyp is inked blue at the margin and bisected. All pieces submitted entirely in cassette E1. (AER:[id number]) /SAMANTHA 02/06/2025 0937 Local . 01 Pathologist provided ICD-10: Z12.11 . 01 CPT . 211075, 996620, 368233, 254063, 252561 Specimen Comment: A courtesy copy of this report has been sent to [phone] Performed at: [address] [facility] [address], [place], [place] [id number] MD Dominguez Zuniga MD Phone: [phone]
--- NOTE | 2025-02-01 10:21 | PM.HP.IH.1 ---
History of Present Illness History of Present Illness Date Patient Seen: 02/01/25 Time Patient Seen: 10:21 Chief complaint: SD Narrative: Jed is a 69-year-old man here for a colonoscopy. His last was a proximally 6 or 7 years ago. He has had polyps removed in the past. His father had colon cancer and in his 60s. [facility] Medical History Prostatitis Family history of colon cancer in father ESTEFANY (obstructive sleep apnea) Tinnitus Anxiety GERD (gastroesophageal reflux disease) Hearing impaired DVT (deep venous thrombosis) Lumbar spondylosis Other low back pain HSV-2 (herpes simplex virus 2) infection Low testosterone Dyslipidemia Impaired fasting blood sugar HTN (hypertension) Atrial fibrillation Surgical History Hx of colonoscopy Hx of cosmetic surgery (1995) Hx of nasal septoplasty (~2014) H/O cardiac radiofrequency ablation (10/2019) Social History household members: spouse alcohol intake: current Meds Home Medications and Allergies Home Medications ?Medication ?Instructions ?Recorded ?Confirmed ?Type doxazosin 8 mg tablet 8 mg PO DAILY 04/21/18 02/01/25 History lisinopril 40 mg tablet 40 mg PO DAILY 04/21/18 02/01/25 History trazodone 150 mg tablet 150 mg PO BEDTIME 04/21/18 01/30/25 History Vitamin B-12 1 tab PO DAILY 10/23/18 01/30/25 History carvedilol 25 mg tablet 25 mg PO BID #60 tabs 10/23/18 02/01/25 Rx cholecalciferol (vitamin D3) 100 4,000 unit PO DAILY 10/23/18 01/30/25 History mcg (4,000 unit) capsule (Vitamin D3) apixaban 5 mg tablet (Eliquis) 5 mg PO BID 11/09/22 02/01/25 History finasteride 5 mg tablet 5 mg PO DAILY 11/09/22 02/01/25 History testosterone undecanoate 237 mg 237 mg PO BID 11/09/22 01/30/25 History capsule (Jatenzo) amlodipine 5 mg tablet 5 mg PO DAILY 12/22/22 02/01/25 History tadalafil 20 mg tablet 20 mg PO DAILY 02/18/24 01/30/25 History Semaglutide 2.4mg/ml See Rx Instructions .Route 05/24/24 01/15/25 Rx Held on 05/24/24. .COMPLEX #10 mL Instructions: Sending e-rx per [facility] request semaglutide (weight loss) 2.4 2.4 mg (0.75 mL) SUBCUT QWEEK #10 05/24/24 02/01/25 Rx mg/0.75 mL subcutaneous pen mL injector eplerenone 25 mg tablet 12.5 mg PO DAILY 11/20/24 02/01/25 History sildenafil 50 mg tablet 50 mg PO DAILY PRN 11/20/24 01/30/25 History rosuvastatin 10 mg tablet 10 mg PO DAILY 01/15/25 02/01/25 History Allergies Allergy/AdvReac Type Severity Reaction Status Date / Time sulfamethoxazole (From Allergy Mild other Verified 02/01/25 10:07 Bactrim) trimethoprim (From Bactrim) Allergy Mild other Verified 02/01/25 10:07 hydroxyzine (From Vistaril) AdvReac hyperactivi Verified 02/01/25 10:07 ty Exam Const General: No acute distress Assessment & Plan Assessment and plan (1) Family history of colon cancer: Status: Acute Plan Colonoscopy for a 69-year-old man with a personal history of colon polyps and a family history of colon cancer. Time-Based Coding :: [TOTAL MINUTES] spent with patient and on the chart (including review of chart, obtaining history, exam, reviewing outside data, placing orders, documenting exam and treatment plan, and counseling patient) on [DATE]. [employer] Document charge(s): No
[2025-02-01] MEDS: LACTATED RINGERS 1,000 ML 42 ML IV (10:22)
[2025-02-01 10:25] VITALS: BP 143/87; PULSE 78; RESP 16; TEMP 36.2; O2SAT 97
--- NOTE | 2025-02-01 11:04 | PM.OP.COLON ---
Operative Date/Time/Diagnoses Date of procedure: 02/01/25 Time of procedure: 11:04 Pre-op diagnosis: Family history of colon cancer Post-op diagnosis: same Procedure & Clinicians Study performed: Colonoscopy Same procedure(s) as scheduled: Yes Surgeon: Ajay Chong Anesthesia Type: MAC +/- Procedure Notes Procedure in detail: Surgeon: Ajay Chong MD Anesthesia: Julianna Phillip DO Procedure: The patient was brought to the endoscopy suite, placed in left lateral decubitus position. The patient was connected to monitoring devices. A time-out was performed. Sedation was administered. Once the patient was adequately sedated, a digital rectal exam was performed and was normal. The scope was then inserted and advanced to the cecum where the appendiceal orifice was identified and photographed. The terminal ileum was intubated and no abnormalities were seen. The scope was then slowly withdrawn over greater than 6 minutes. The mucosa was thoroughly inspected. There was a 5 mm polyp in the cecum removed with a cold snare. There were 2 polyps in the transverse colon between 3 and 5 mm removed with cold snare and sent together. There was a 5 mm polyp in the descending colon removed with a cold snare. There was a 7 mm polyp in the sigmoid colon removed with a cold snare. The scope was retroflexed in the rectum. No other abnormalities were seen. The scope was straightened and removed. The patient was awakened and brought to recovery. Scope withdrawal time: 14 minutes Sedation time: 20 minutes EBL: 5 mL Findings: Subcentimeter polyps in the cecum, ascending colon, transverse colon, descending colon and sigmoid colon for a total of 6 polyps Post-procedure Disposition: PACU
[2025-02-01 11:05] VITALS: BP 107/68; PULSE 71; RESP 24; TEMP 36.6; O2SAT 99
[2025-02-01 11:11] VITALS: BP 135/62; PULSE 77; RESP 19; O2SAT 99
== END 2025-02-01 11:27 | disposition home or self-care (01) ==
PROVIDERS: PCP Registered Nurse Diabetes Educator; Referring Provider Surgery; Visit Provider Surgery
PROC: 0DJD8ZZ Inspection of Lower Intestinal Tract, Via Natural or Artificial Opening Endoscopic (ICD-10-PCS; CPT 45378; principal; 2025-02-01 11:00)
DX: Z12.11 Encounter for screening for malignant neoplasm of colon (principal); Z80.0 Family history of malignant neoplasm of digestive organs; Z86.0100 Personal history of colon polyps, unspecified; D12.0 Benign neoplasm of cecum; D12.2 Benign neoplasm of ascending colon; D12.3 Benign neoplasm of transverse colon; D12.4 Benign neoplasm of descending colon; D12.5 Benign neoplasm of sigmoid colon
CPT/HCPCS: 45385; 93005; J2704; J7120